=== PATIENT | female | born 1975 | race African-American/Black ===

== ENCOUNTER 2016-08-27 09:24 | Emergency (ER) | payer SELFPAY ==
[2016-08-27 09:45] VITALS: BP 155/105
[2016-08-27 10:23] LABS: ABSOLUTE EOSINOPHILS # (AUTO) 0.2 10^3/uL (0.0-0.6); ABSOLUTE MONOCYTES (AUTO) 0.2 10^3/uL (0.1-1.4); ABSOLUTE NEUT (AUTO) 2.3 10^3/uL (1.7-8.2); BASOPHILS % (AUTO) 0.6 % (0-2); EOSINOPHILS % (AUTO) 4.6 % (0-6); HEMATOCRIT 37.2 % (36.0-47.0); HEMOGLOBIN 12.6 g/dL (12.0-15.5); HGB HCT DIFFERENCE 0.6; LYMPHOCYTES % (AUTO) 41.2 % (13-45); MEAN CORPUSCULAR HEMOGLOBIN 25.3 pg (27.0-33.4); MEAN CORPUSCULAR HGB CONC 33.9 g/dL (32.0-36.0); MEAN CORPUSCULAR VOLUME 75 fl (80-97); RED BLOOD COUNT 4.98 10^6/uL (3.72-5.28); RED CELL DISTRIBUTION WIDTH 15.1 % (11.5-14.0); SEGMENTED NEUTROPHILS % (AUTO) 48.6 % (42-78); WHITE BLOOD COUNT 4.8 10^3/uL (4.0-10.5)
[2016-08-27 10:38] LABS: ALANINE AMINOTRANSFERASE 31 U/L (9-52); ALBUMIN 3.9 g/dL (3.5-5.0); ALKALINE PHOSPHATASE 44 U/L (38-126); ANION GAP 10 (5-19); ASPARTATE AMINO TRANSFERASE 26 U/L (14-36); BILIRUBIN,TOTAL 0.7 mg/dL (0.2-1.3); BLOOD UREA NITROGEN 17 mg/dL (7-20); CALCIUM 9.3 mg/dL (8.4-10.2); CARBON DIOXIDE 28 mmol/L (22-30); CHLORIDE 104 mmol/L (98-107); CREATINE KINASE 98 U/L (30-135); CREATININE RESULT 0.99 mg/dL (0.52-1.25); GLUCOSE 89 mg/dL (75-110); POTASSIUM 4.6 mmol/L (3.6-5.0); SODIUM 142.4 mmol/L (137-145); TOTAL PROTEIN 7.3 g/dL (6.3-8.2)
[2016-08-27 10:50] LABS: CREATINE KINASE MB 0.99 ng/mL (<4.55)
[2016-08-27 10:52] LABS: TROPONIN I < 0.012 ng/mL
--- NOTE | 2016-08-27 11:23 | ER Document Report ---
ED General - General Chief Complaint: Chest Pain > 30 Stated Complaint: CHEST PAIN Time seen by provider: 11:21 Mode of Arrival: Ambulatory Information source: Patient Notes: This is a 41-year-old female with a history of hypertension, fibromyalgia, reactive airway disease who presents to the emergency room with left chest pain which is sharp in nature, nonradiating. Patient states the pain is been worse over the last couple of days. She states that she's had this pain since June and has been seen by her primary care doctor (Dr. Herrera) in the past for it. Patient does have baseline reactive airway disease with some shortness of breath she says that it is not any worse. She does complain of lower leg pain which is not unusual for her given her fibromyalgia. TRAVEL OUTSIDE OF THE [place] IN LAST 30 DAYS: No - HPI Onset: Just prior to arrival Quality of pain: No pain Severity: None Pain Level: Denies Associated symptoms: denies: Fever Exacerbated by: Denies Relieved by: Denies Similar symptoms previously: No Recently seen / treated by doctor: No - Related Data Allergies/Adverse Reactions: No Known Allergies Allergy (Verified 08/27/16 09:41) Past Medical History - General Information source: Patient - Social History Smoking Status: Never Smoker Chew tobacco use (# tins/day): No Frequency of alcohol use: None Drug Abuse: None Lives with: Family Family History: Reviewed & Not Pertinent Patient has suicidal ideation: No Patient has homicidal ideation: No - Past Medical History Cardiac Medical History: Reports: Hx Hypertension Pulmonary Medical History: Reports: Hx Asthma - Wheezes only when she has upper respiratory tract infections., Hx Bronchitis GI Medical History: 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 Musculoskeltal Medical History: Reports Hx Fibromyalgia Infectious Medical History: 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 Past Surgical History: Reports: Hx Hysterectomy, Hx Tubal Ligation - Immunizations Immunizations up to date: Yes Hx Diphtheria, Pertussis, Tetanus Vaccination: Yes - 2008 Review of Systems - Review of Systems Constitutional: denies: Chills, Fever EENT: No symptoms reported Cardiovascular: See HPI Respiratory: See HPI Gastrointestinal: No symptoms reported Genitourinary: No symptoms reported Female Genitourinary: No symptoms reported Musculoskeletal: See HPI Skin: No symptoms reported Hematologic/Lymphatic: No symptoms reported Neurological/Psychological: No symptoms reported Physical Exam - Vital signs Vitals: Temp Pulse Resp BP Pulse Ox 98.1 F 64 16 155/105 H 99 08/27/16 09:44 08/27/16 09:44 08/27/16 09:44 08/27/16 09:44 08/27/16 09:44 Notes: Physical exam: GENERAL: 41-year-old female, alert and oriented 3, no acute distress HEAD: Atraumatic, normocephalic. EYES: Pupils equal round and reactive to light, extraocular movements intact, sclera anicteric, conjunctiva are normal. ENT: TMs normal, nares patent, oropharynx clear without exudates. Moist mucous membranes. NECK: Normal range of motion, supple without lymphadenopathy or JVD. LUNGS: Breath sounds clear to auscultation bilaterally and equal. No wheezes rales or rhonchi. HEART: Regular rate and rhythm without murmurs, rubs or gallops. ABDOMEN: Soft, nontender, normoactive bowel sounds. No guarding, no rebound. No masses appreciated. EXTREMITIES: Normal range of motion, no pitting or edema. No clubbing or cyanosis. NEUROLOGICAL: Cranial nerves II through XII grossly intact. Normal speech, normal gait. PSYCH: Normal mood, normal affect. SKIN: Warm, Dry, normal turgor, no rashes or lesions noted. Course - Vital Signs Vital signs: Temp Pulse Resp BP Pulse Ox 98.1 F 64 16 155/105 H 99 08/27/16 09:44 08/27/16 09:44 08/27/16 09:44 08/27/16 09:44 08/27/16 09:44 - Laboratory Result Diagrams: 08/27/16 10:10 08/27/16 10:10 Laboratory results interpreted by me: 08/27/16 10:10 MCV 75 L MCH 25.3 L RDW 15.1 H - Diagnostic Test Radiology reviewed: Image reviewed, Reports reviewed - CTA of the chest shows no pulmonary emboli. Lower extremity vascular ultrasound shows no DVT. Discharge - Discharge Clinical Impression: chest wall pain Condition: Stable Disposition: HOME, SELF-CARE Instructions: Chest Wall Pain ([facility]) Additional Instructions: Note: The lower extremity Doppler showed no evidence of blood clots. The CT of the chest showed no evidence of any blood clots. There was no evidence of any masses or pneumonia with her lungs on CT. Follow-up with your quality assurance qa lab analyst as planned. Take the Percocet for pain. Also take ibuprofen as needed. Return to the emergency room for worsening pain, shortness of breath or any concerns he getting worse. Prescriptions: Oxycodone HCl/Acetaminophen [Percocet 5-325 mg Tablet] 1 - 2 tab PO ASDIR PRN # 25 tablet PRN Reason:
[2016-08-27] MEDS ORDERED: ACETAMINOPHEN 325 MG TABLET PO ONE (13:19)
--- NOTE | 2016-08-27 16:05 | EKG REPORT ---
SEVERITY:- NORMAL ECG - SINUS RHYTHM : Confirmed by: Ingrid Granda 27-Aug-2016 16:04:54
--- NOTE | 2016-08-27 16:42 | XCELERA REPORT ---
[address] [address] Lower Extremity Venous Evaluation Name: WAYNE MAO Age: 41 yrs Gender: Female : 1975 Patient Status: Emergency Patient Location: ER Study Date: 08/27/2016 11:42 AM Procedure: Color flow and duplex imaging of the veins of the right lower extremity as well as the left Common Femoral vein. Reason For Study: rle pain Ordering Physician: RAYA NIEVES Performed By: Maddison Ceja Right Sided Venous Evaluation Normal vessel filling wall to wall, compression and augmentation as well as Colour flow down to the infrageniculate veins. Left Sided Venous Evaluation The left common femoral vein is fully compressible. Spontaneous and phasic flow is present in the left common femoral vein. Critical Findings Called in to the ER. Interpretation Summary No duplex evidence of DVT or obstruction in the right lower extremity nor in the left Common Femoral vein. : RAYA NIEVES > Oli Colbert
== END 2016-08-27 15:52 | disposition home or self-care (01) ==
LOC: ER 09:24
DX: R07.89 Other chest pain (principal); I10 Essential (primary) hypertension; M79.7 Fibromyalgia; J45.909 Unspecified asthma, uncomplicated
CPT/HCPCS: 36415; 71020; 71275; 80053; 82550; 82553; 84484; 85025; 93005; 93010; 93971; 99285

== ENCOUNTER 2016-09-11 11:44 | Day surgery (SDC) | payer MEDICAID ==
[~2016-09-11 11:44] MED LIST: DIPHENHYDRAMINE HCL 50 MG/ML VIAL ONE; EPINEPHRINE INJ 1 MG/10 ML DISP.SYRIN ONE; FENTANYL CITRATE INJ/PF 100 MCG/2 ML AMPUL ONE; FLUMAZENIL INJ 0.5 MG/5 ML VIAL IV ONE; GLUCAGON,HUMAN RECOMB 1 MG INJ ONE; MIDAZOLAM 2 MG/2 ML INJ ONE; NALOXONE HCL INJ/PF 0.4 MG/1 ML SDV ONE; ONDANSETRON HCL INJ/PF 4 MG/2 ML SDV ONE; PROMETHAZINE HCL INJ 25 MG/1 ML VIAL ONE
--- NOTE | 2016-09-11 12:27 | Operative Report ---
Operative Report DATE OF SURGERY: 09/11/16 Operative Report: The risks benefits and alternatives of the procedure explained to the patient in detail and informed consent is obtained that GIF Olympus video scope was inserted into the patient's mouth and hypopharynx the esophagus is identified intubated and insufflated the scope was then advanced through the esophagus stomach and duodenum retroflexion maneuver is done the esophagus stomach and first and second portions of the duodenum examined PREOPERATIVE DIAGNOSIS: Nausea, dyspepsia POSTOPERATIVE DIAGNOSIS: Gastritis status post biopsy rule out Helicobacter pylori OPERATION: EGD with biopsy SURGEON: KHRIS STATON ANESTHESIA: Moderate Sedation - 2 mg of Versed, 100 g of fentanyl TISSUE REMOVED OR ALTERED: Gastric specimen obtained COMPLICATIONS: None. ESTIMATED BLOOD LOSS: none. INTRAOPERATIVE FINDINGS: Normal esophagus. Gastritis noted. First and second portions of the duodenum normal PROCEDURE: Patient tolerated the procedure well. No Immediate postprocedure complications are noted. Patient is discharged in good condition. Discharge date 09/11/2016. Discharge diet: Regular. Discharge activity: Regular. Patient does have a 2-3 week follow-up to discuss findings. She is instructed to call the office or proceed to the emergency room if any further problems or questions. We'll await on biopsies.
[2016-09-11 13:38] VITALS: BP 116/75
[2016-09-16 07:12] LABS: HEPATITIS BE AB Positive (Negative)
== END 2016-09-11 13:40 | disposition home or self-care (01) ==
LOC: END 11:44
PROVIDERS: ATTEND Internal Medicine Gastroenterology
PROC: 0DB68ZX Excision of Stomach, Via Natural or Artificial Opening Endoscopic, Diagnostic (ICD-10-PCS; principal; 2016-09-11 12:00)
DX: K29.50 Unspecified chronic gastritis without bleeding (principal); J45.909 Unspecified asthma, uncomplicated; I10 Essential (primary) hypertension; M79.7 Fibromyalgia; B19.10 Unspecified viral hepatitis B without hepatic coma; Z79.899 Other long term (current) drug therapy; Z79.51 Long term (current) use of inhaled steroids
CPT/HCPCS: 43239; 36415; 86705; 87350; 86707; 86704; 86317; 87340; 86706; 88342 ×2; 88305 ×2; J2250; J3010; J0171; J1200; J1610; J2310; J2405; J2550; J3490

== ENCOUNTER 2017-04-02 00:58 | Emergency (ER) | payer MEDICAID ==
[2017-04-02] MEDS ORDERED: IPRATROPIUM/ALBUTEROL 0.5-2.5 MG/3 ML AMPUL NEB ONE (01:19)
[2017-04-02] MEDS ORDERED: PREDNISONE 20 MG TABLET PO ONE (01:19)
[2017-04-02] MEDS: ALBUTEROL SULFATE 0.083% NEB 2.5 MG/3 ML AMPUL NEB SCH ×2 (01:23→03:18)
[2017-04-02] MEDS ORDERED: BENZONATATE 100 MG CAPSULE PO ONE (02:32)
--- NOTE | 2017-04-02 02:47 | ER Document Report ---
HPI - HPI Pain Level: 4 Notes: Patient with a history of asthma, fibromyalgia, hypertension presents the ED complaining of a dry semi-productive cough, occasional chills, sore throat, hoarseness, and wheezing 1 day. Patient states that she has been using ibuprofen [id number] with minimal relief. Patient states that she has been using her Symbicort twice a day as directed along with her albuterol inhaler and nebulizer treatments. Patient states that she is still able to eat and drink without any difficulties. Patient states she is still able to ambulate without any difficulties or shortness of breath. Denies any recent travel, illness, exposure to sick contacts. Denies any headache, fever, neck pain/stiffness, nasal donte/discharge, chest pain, palpitations, syncope, shortness of breath, dyspnea, abdominal pain, nausea/vomiting/diarrhea, urinary retention, dysuria, hematuria, or rash. - ROS Notes: REVIEW OF SYSTEMS: CONSTITUTIONAL : Denies fever or sweats. Denies recent illness. EENT: see hpi. No eye complaints. CARDIOVASCULAR: Denies chest pain. Denies palpitations or racing or irregular heart beat. Denies ankle edema. RESPIRATORY: see hpi GASTROINTESTINAL: Denies abdominal pain or distention. Denies nausea, vomiting , or diarrhea. Denies blood in vomitus, stools, or per rectum. Denies black, tarry stools. Denies constipation. GENITOURINARY: Denies difficulty urinating, painful urination, burning, frequency, blood in urine, or discharge. MUSCULOSKELETAL: Denies back or neck pain or stiffness. Denies joint pain or swelling. SKIN: Denies rash, lesions or sores. NEUROLOGICAL: Denies confusion or altered mental status. Denies passing out or loss of consciousness. Denies dizziness or lightheadedness. Denies headache. Denies weakness or paralysis or loss of use of either side. Denies problems with gait or speech. Denies sensory loss, numbness, or tingling. ALL OTHER SYSTEMS REVIEWED AND NEGATIVE. Dictation was performed using [employer] voice recognition software - REPRODUCTIVE Reproductive: DENIES: : - DERM Skin Color: Normal, [place] Past Medical History - Social History Smoking Status: Unknown if Ever Smoked Drug Abuse: None Family History: Reviewed & Not Pertinent - Past Medical History Cardiac Medical History: Reports: Hx Hypertension Denies: Hx Coronary Artery Disease, Hx Heart Attack Pulmonary Medical History: Reports: Hx Asthma - Wheezes only when she has upper respiratory tract infections., Hx Bronchitis, Hx Pneumonia Denies: Hx COPD Neurological Medical History: Denies: Hx Cerebrovascular Accident, Hx Seizures Renal/ Medical History: Denies: Hx Peritoneal Dialysis GI Medical History: 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 Musculoskeltal Medical History: Denies Hx Arthritis, Reports Hx Fibromyalgia Infectious Medical History: 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 Surgical Hx: Negative Past Surgical History: Reports: Hx Hysterectomy, Hx Tubal Ligation - Immunizations Immunizations up to date: Yes Hx Diphtheria, Pertussis, Tetanus Vaccination: Yes - 2008 Vertical Provider Document - CONSTITUTIONAL Agree With Documented VS: Yes Notes: PHYSICAL EXAMINATION: GENERAL: Well-appearing, well-nourished and in no acute distress. HEAD: Atraumatic, normocephalic. EYES: Pupils equal round and reactive to light, extraocular movements intact, sclera anicteric, conjunctiva are normal. ENT: EAC clear b/l. TM's intact b/l without erythema, fluid, or perforation. Nares patent and without discharge. oropharynx clear without exudates. No tonsilar hypertrophy or erythema. Moist mucous membranes. No sinus tenderness. NECK: Normal range of motion, supple without lymphadenopathy. No rigidity/ meningismus. LUNGS: mild wheezing b/l. No crackles/rhonchi HEART: Regular rate and rhythm without murmurs, rubs, gallops. ABDOMEN: Soft, nontender, nondistended abdomen. No guarding, no rebound. No masses appreciated. Normal bowel sounds present. No CVA tenderness bilaterally. Musculoskeletal: Ewelina neg b/l. Extremities: No cyanosis, clubbing, or edema b/l. Peripheral pulses 2+. Capillary refill less than 2 seconds. NEUROLOGICAL: Normal speech, normal gait. Normal sensory, motor exams PSYCH: Normal mood, normal affect. SKIN: Warm, Dry, normal turgor, no rashes or lesions noted. - INFECTION CONTROL TRAVEL OUTSIDE OF THE [place] IN LAST 30 DAYS: No - RESPIRATORY O2 Sat by Pulse Oximetry: 97 Course - Re-evaluation Re-evalutation: 04/02/17 04:05 Patient is an afebrile, well-hydrated, 42-year-old female who presents the ED with acute URI and asthma exacerbation. Vitals are stable. PE otherwise unremarkable. Chest x-ray was unremarkable for any acute pathology aside from pulm congestion--most likely related to viral illness. Lung sounds were good overall. 2 nebulizer treatments were given in the ED today along with a Tessalon Perle. Low suspicion for any ACS, pericarditis, pneumothorax, dissection, PE, meningitis, sepsis, peritonsillar/pharyngeal abscess, respiratory compromise, ludwigs, or other emergent systemic condition at this time. Patient is aware that condition can change from initial presentation and she needs to monitor symptoms closely and seek medical attention if any acute changes. Conservative measures for symptoms as reviewed in discharge. Advised recheck with her PCM in 2-3 days. Return to the ED with any worsening/ concerning symptoms otherwise as reviewed in discharge. Patient is in agreement. - Vital Signs Vital signs: Temp Pulse Resp BP Pulse Ox 98.5 F 75 20 160/89 H 97 04/02/17 02:15 04/02/17 02:15 04/02/17 02:15 04/02/17 02:15 04/02/17 02:15 Discharge - Discharge Clinical Impression: Asthma exacerbation URI (upper respiratory infection) Qualifiers: URI type: unspecified URI Qualified Code(s): J06.9 - Acute upper respiratory infection, unspecified Condition: Stable Disposition: HOME, SELF-CARE Instructions: Upper Respiratory Illness ([facility]), Viral Syndrome ([facility]) Additional Instructions: Maintain adequate fluid intake Take meds as directed tylenol/ibuprofen as needed over the counter cold medication as needed for symptoms Humidified air may help F/u: with your PCM in 2-3 days for a recheck Return to the ED with any worsening symptoms and/or development of fever, headache, neck pain/stiffness, trouble swallowing, drooling, chest pain, palpitations, syncope, shortness of breath, trouble breathing, abdominal pain, n /v/d, or other worsening symptoms that are concerning to you. Prescriptions: Benzonatate [Tessalon Perle 100 mg Capsule] 100 mg PO Q8HP PRN #10 cap PRN Reason: Forms: Elevated Blood Pressure Referrals: TRINI PINA MD [ACTIVE STAFF] - Follow up in 3-5 days
--- NOTE | 2017-04-02 03:56 | RADIOLOGY REPORT (SQ) ---
EXAM DESCRIPTION: CHEST PA/LAT COMPLETED DATE/TIME: 04/02/2017 3:29 am REASON FOR STUDY: cough COMPARISON: 08/27/2016. EXAM PARAMETERS: NUMBER OF VIEWS: two views TECHNIQUE: Digital Frontal and Lateral radiographic views of the chest acquired. RADIATION DOSE: NA LIMITATIONS: none FINDINGS: LUNGS AND PLEURA: No opacities, masses or pneumothorax. No pleural effusion. Moderate nandini g volume. Pulmonary vascular congestion. MEDIASTINUM AND HILAR STRUCTURES: No masses or contour abnormalities. HEART AND VASCULAR STRUCTURES: Heart normal size. No evidence for failure. BONES: No acute findings. Developmental splaying of the right 4th and 5th posterior ribs, stable. HARDWARE: None in the chest. OTHER: No other significant finding. IMPRESSION: Pulmonary vascular congestion. TECHNICAL DOCUMENTATION: JOB ID: [id number] [employer]- All Rights Reserved
[2017-04-02 05:11] VITALS: BP 145/76
== END 2017-04-02 05:11 | disposition home or self-care (01) ==
LOC: ER 00:58
DX: J06.9 Acute upper respiratory infection, unspecified (principal); J45.901 Unspecified asthma with (acute) exacerbation; R05 Cough; I10 Essential (primary) hypertension; J02.9 Acute pharyngitis, unspecified; R68.83 Chills (without fever); R49.0 Dysphonia; Z87.01 Personal history of pneumonia (recurrent)
CPT/HCPCS: 94640 ×2; 99285; 71020; J3490; J7512; J7620

== ENCOUNTER → 2018-04-01 | Outpatient (CLI) | payer MEDICAID ==
--- NOTE | 2018-04-01 11:05 | RADIOLOGY REPORT (SQ) ---
EXAM DESCRIPTION: KNEE LEFT 4 VIEWS COMPLETED DATE/TIME: 04/01/2018 10:28 am REASON FOR STUDY: PAIN IN RIGHT KNEE, PAIN IN LEFT KNEE M25.561 PAIN IN RIGHT KNEE M25.562 PAIN IN LEFT KNEE COMPARISON: None. NUMBER OF VIEWS: Four views. TECHNIQUE: AP, lateral, and both oblique radiographic images acquired of the left knee. LIMITATIONS: None. FINDINGS: MINERALIZATION: Normal. BONES: No acute fracture or dislocation. No worrisome bone lesions. JOINT: No effusion. SOFT TISSUES: No soft tissue swelling. No radio-opaque foreign body. OTHER: No other significant finding. IMPRESSION: NEGATIVE STUDY OF THE LEFT KNEE. NO RADIOGRAPHIC EVIDENCE OF ACUTE INJURY. TECHNICAL DOCUMENTATION: JOB ID: [id number] [employer]- All Rights Reserved Reading location - IP/workstation name: [email or web address]
--- NOTE | 2018-04-01 11:06 | RADIOLOGY REPORT (SQ) ---
EXAM DESCRIPTION: KNEE RIGHT 4 VIEWS COMPLETED DATE/TIME: 04/01/2018 10:28 am REASON FOR STUDY: . M25.561 PAIN IN RIGHT KNEE M25.562 PAIN IN LEFT KNEE COMPARISON: None. NUMBER OF VIEWS: Four views. TECHNIQUE: AP, lateral, and both oblique radiographic images acquired of the right knee. LIMITATIONS: None. FINDINGS: MINERALIZATION: Normal. BONES: No acute fracture or dislocation. No worrisome bone lesions. JOINT: No effusion. SOFT TISSUES: No soft tissue swelling. No radio-opaque foreign body. OTHER: No other significant finding. IMPRESSION: NEGATIVE STUDY OF THE RIGHT KNEE. NO RADIOGRAPHIC EVIDENCE OF ACUTE INJURY. TECHNICAL DOCUMENTATION: JOB ID: [id number] [employer]- All Rights Reserved Reading location - IP/workstation name: [email or web address]
== END ==
LOC: OD 10:00
PROVIDERS: ATTEND Family Medicine
DX: M25.561 Pain in right knee (principal); M25.562 Pain in left knee

== ENCOUNTER → 2018-07-08 | Outpatient (CLI) | payer MEDICAID ==
--- NOTE | 2018-07-09 13:25 | WOMENS IMAGING REPORT ---
EXAM DESCRIPTION: BILAT SCREENING MAMMO W/CAD COMPLETED DATE/TIME: 07/08/2018 4:09 pm REASON FOR STUDY: BILATERAL SCREENING MAMMO /Z12.31 Z12.31 ENCNTR SCREEN MAMMOGRAM FOR MALIGNANT NE OPLASM OF DANYEL COMPARISON: 2015 TECHNIQUE: Standard craniocaudal and mediolateral oblique views of each breast recorded using Mempilea l acquisition. LIMITATIONS: None. FINDINGS: No masses, calcifications or architectural distortion. No areas of suspicion. Read with the assistance of CAD. .[facility] - R2 Cenova Version 1.3 .[facility] - R2 Cenova Version 1.3 .[facility] - R2 Cenova Version 2.4 .[facility] - R2 Cenova Version 2.4 .[facility] - R2 Voltage Regulator Assembler Version 9.2 IMPRESSION: NORMAL MAMMOGRAM. BIRADS 1. BREAST DENSITY: b. There are scattered areas of fibroglandular density. BIRAD: 1 NEGATIVE RECOMMENDATION: ROUTINE SCREENING Please continue yearly bilateral screening mammography/tomosynthesis in June 2019 COMMENT: The patient has been notified of the results by letter per SA requirements. Additional no tification policies are in place for contacting patient with suspicious or incomplete findings. Quality ID #[id number]: The [employer] recommends an annual screening mammogram for women aged 40 years or over. This facility utilizes a reminder system to ensure that all patients receive reminder letters, and/or direct phone calls for appointments. This includes reminders for routine scr eening mammograms, diagnostic mammograms, or other Breast Imaging Interventions when appropriate. Th is patient will be placed in the appropriate reminder system. The [employer] (ACR) has developed recommendations for screening MRI of the breast s in certain patient populations, to be used in conjunction with mammography. Breast MRI surveillanc e may be appropriate for women with more than 20% lifetime risk of developing breast cancer as deter mined by genetic testing, significant family history of the disease, or history of mantle radiation f or Hodgkins Disease. ACR Practice Guidelines 2008. TECHNICAL DOCUMENTATION: FINDING NUMBER: (1) ASSESSMENT: (1) JOB ID: [id number] [employer]- All Rights Reserved Reading location - IP/workstation name: [email or web address]
== END ==
LOC: WI 15:50
PROVIDERS: ATTEND Family Medicine
DX: Z12.31 Encounter for screening mammogram for malignant neoplasm of breast (principal)
CPT/HCPCS: 77067

== ENCOUNTER 2018-07-11 10:35 | Emergency (ER) | payer MEDICAID ==
--- NOTE | 2018-07-11 10:54 | EKG REPORT ---
SEVERITY:- ABNORMAL ECG - SINUS RHYTHM PROBABLE LEFT ATRIAL ABNORMALITY LEFT VENTRICULAR HYPERTROPHY : Confirmed by: Ingrid Granda 11-Jul-2018 10:53:59
[2018-07-11] MEDS ORDERED: CLONIDINE HCL 0.2 MG TABLET PO ONE (10:55)
[2018-07-11] MEDS ORDERED: ASPIRIN 325 MG TABLET PO ONE (10:55)
--- NOTE | 2018-07-11 10:57 | ER Document Report ---
ED Medical Screen (RME) - General Chief Complaint: Chest Pain Stated Complaint: BLOOD PRESSURE ISSUE/SORE THROAT Time Seen by Provider: 07/11/18 10:54 TRAVEL OUTSIDE OF THE [place] IN LAST 30 DAYS: No - HPI Patient complains to provider of: CP, elevaated BP, ST Onset: Yesterday - pt states here BP was checked andfound to be elevated today despite taking her prescribed meds. Also c/o sore throat and intermittent CP - Related Data Allergies/Adverse Reactions: No Known Allergies Allergy (Verified 04/02/17 01:16) Past Medical History - Past Medical History Cardiac Medical History: Reports: Hx Hypertension Denies: Hx Coronary Artery Disease, Hx Heart Attack Pulmonary Medical History: Reports: Hx Asthma - Wheezes only when she has upper respiratory tract infections., Hx Bronchitis, Hx Pneumonia Denies: Hx COPD Neurological Medical History: Denies: Hx Cerebrovascular Accident, Hx Seizures Renal/ Medical History: Denies: Hx Peritoneal Dialysis GI Medical History: 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 Musculoskeltal Medical History: Denies Hx Arthritis, Reports Hx Fibromyalgia Infectious Medical History: 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 Past Surgical History: Reports: Hx Hysterectomy, Hx Tubal Ligation - Immunizations Immunizations up to date: Yes Hx Diphtheria, Pertussis, Tetanus Vaccination: Yes - 2008 Physical Exam - Vital signs Vitals: Temp Pulse Resp BP Pulse Ox 98.2 F 62 16 177/119 H 97 07/11/18 10:50 07/11/18 10:50 07/11/18 10:50 07/11/18 10:50 07/11/18 10:50 Course - Vital Signs Vital signs: Temp Pulse Resp BP Pulse Ox 98.2 F 62 16 177/119 H 97 07/11/18 10:50 07/11/18 10:50 07/11/18 10:50 07/11/18 10:50 07/11/18 10:50 Doctor's Discharge - Discharge Referrals: TRINI PINA MD [Primary Care Provider] - Follow up as needed
[2018-07-11 11:35] LABS: ABSOLUTE EOSINOPHILS # (AUTO) 0.3 10^3/uL (0.0-0.6); ABSOLUTE LYMPHOCYTES (AUTO) 2.1 10^3/uL (0.5-4.7); ABSOLUTE MONOCYTES (AUTO) 0.4 10^3/uL (0.1-1.4); ABSOLUTE NEUT (AUTO) 2.6 10^3/uL (1.7-8.2); BASOPHILS % (AUTO) 0.8 % (0-2); EOSINOPHILS % (AUTO) 6.3 % (0-6); HEMATOCRIT 39.1 % (36.0-47.0); HEMOGLOBIN 13.2 g/dL (12.0-15.5); LYMPHOCYTES % (AUTO) 38.8 % (13-45); MEAN CORPUSCULAR HGB CONC 33.7 g/dL (32.0-36.0); MEAN CORPUSCULAR VOLUME 77 fl (80-97); MONOCYTES % (AUTO) 6.5 % (3-13); PLATELET COUNT 199 10^3/uL (150-450); RED BLOOD COUNT 5.08 10^6/uL (3.72-5.28); RED CELL DISTRIBUTION WIDTH 14.8 % (11.5-14.0); SEGMENTED NEUTROPHILS % (AUTO) 47.6 % (42-78); TOTAL CELLS COUNTED % (AUTO) 100 %; WHITE BLOOD COUNT 5.5 10^3/uL (4.0-10.5)
[2018-07-11 11:55] LABS: ALANINE AMINOTRANSFERASE 12 U/L (9-52); ALKALINE PHOSPHATASE 53 U/L (38-126); ANION GAP 9 (5-19); ASPARTATE AMINO TRANSFERASE 24 U/L (14-36); BILIRUBIN,DIRECT 0.2 mg/dL (0.0-0.4); BILIRUBIN,TOTAL 0.5 mg/dL (0.2-1.3); BLOOD UREA NITROGEN 14 mg/dL (7-20); CALCIUM 9.5 mg/dL (8.4-10.2); CARBON DIOXIDE 31 mmol/L (22-30); CHLORIDE 104 mmol/L (98-107); CREATINE KINASE 121 U/L (30-135); GLUCOSE 73 mg/dL (75-110); POTASSIUM 4.2 mmol/L (3.6-5.0); SODIUM 143.6 mmol/L (137-145); TOTAL PROTEIN 7.4 g/dL (6.3-8.2)
[2018-07-11 12:06] LABS: CREATINE KINASE MB 0.88 ng/mL (<4.55)
[2018-07-11 12:09] LABS: TROPONIN I < 0.012 ng/mL
--- NOTE | 2018-07-11 12:27 | RADIOLOGY REPORT (SQ) ---
EXAM DESCRIPTION: CHEST 2 VIEWS COMPLETED DATE/TIME: 07/11/2018 11:44 am REASON FOR STUDY: CP COMPARISON: 04/02/2017. EXAM PARAMETERS: NUMBER OF VIEWS: two views TECHNIQUE: Digital Frontal and Lateral radiographic views of the chest acquired. RADIATION DOSE: NA LIMITATIONS: none FINDINGS: LUNGS AND PLEURA: Chronic scarring at right lung base. 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 MEDIASTINUM AND HILAR STRUCTURES: No masses or contour abnormalities. HEART AND VASCULAR STRUCTURES: The heart is unchanged. The pulmonary vasculature is normal. BONES: Previously noted developmental variant of the right posterior 4th and 5th ribs seen. Dorsal s pondylosis. HARDWARE: None in the chest. OTHER: No other significant finding. IMPRESSION: No acute disease. TECHNICAL DOCUMENTATION: JOB ID: [id number] [employer]- All Rights Reserved Reading location - IP/workstation name: [email or web address]
--- NOTE | 2018-07-11 13:19 | ER Document Report ---
ED General - General Chief Complaint: Chest Pain Stated Complaint: BLOOD PRESSURE ISSUE/SORE THROAT Time Seen by Provider: 07/11/18 10:54 TRAVEL OUTSIDE OF THE [place] IN LAST 30 DAYS: No - HPI Patient complains to provider of: Elevated blood pressure chest pain sore throat Notes: Patient was seen in urgent care earlier today for sore throat. Patient states that the urgent care center over to the ER for further evaluation of a sore throat. States that while she was at urgent care noticed that her blood pressure was up. Patient states recent changes to her blood pressure medications by her PCP patient is unaware of these changes patient does endorse that she does take amlodipine and clonidine. Patient states she may have missed a few doses of her clonidine on Thursday. Patient otherwise states intermittent chest pain over the last 3-4 days. Center of the chest nonradiating. Patient denies any sick contacts that she is aware of. Denies any fevers chills nausea vomiting or diarrhea. Patient upon my evaluation is resting comfortably no signs of any acute distress. Patient was seen in triage with elevated blood pressure a dose of clonidine was given in triage. Blood pressure has improved since that time and is currently now 150 systolic A brief review of the patient's medical records available in [employer] was performed - Related Data Allergies/Adverse Reactions: No Known Allergies Allergy (Verified 04/02/17 01:16) Past Medical History - Social History Smoking Status: Unknown if Ever Smoked Family History: Reviewed & Not Pertinent Patient has suicidal ideation: No Patient has homicidal ideation: No - Past Medical History Cardiac Medical History: Reports: Hx Hypertension Denies: Hx Coronary Artery Disease, Hx Heart Attack Pulmonary Medical History: Reports: Hx Asthma - Wheezes only when she has upper respiratory tract infections., Hx Bronchitis, Hx Pneumonia Denies: Hx COPD Neurological Medical History: Denies: Hx Cerebrovascular Accident, Hx Seizures Renal/ Medical History: Denies: Hx Peritoneal Dialysis GI Medical History: 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 Respiratory: No symptoms reported Gastrointestinal: No symptoms reported Genitourinary: No symptoms reported Female Genitourinary: No symptoms reported Musculoskeletal: No symptoms reported Skin: No symptoms reported Hematologic/Lymphatic: No symptoms reported Neurological/Psychological: No symptoms reported -: Yes All other systems reviewed and negative Physical Exam - Vital signs Vitals: Temp Pulse Resp BP Pulse Ox 98.2 F 62 16 177/119 H 97 07/11/18 10:50 07/11/18 10:50 07/11/18 10:50 07/11/18 10:50 07/11/18 10:50 Interpretation: Normal - General General appearance: Appears well, Alert - HEENT Head: Normocephalic, Atraumatic Eyes: Normal Pupils: PERRL - Respiratory Respiratory status: No respiratory distress Chest status: Nontender Breath sounds: Normal Chest palpation: Normal - Cardiovascular Rhythm: Regular Heart sounds: Normal auscultation Murmur: No - Abdominal Inspection: Normal Distension: No distension Bowel sounds: Normal Tenderness: Nontender Organomegaly: No organomegaly - Back Back: Normal, Nontender - Extremities General upper extremity: Normal inspection, Nontender, Normal color, Normal ROM , Normal temperature General lower extremity: Normal inspection, Nontender, Normal color, Normal ROM , Normal temperature, Normal weight bearing. No: Ewelina's sign - Neurological Neuro grossly intact: Yes Cognition: Normal Orientation: AAOx4 Sara Coma Scale Eye Opening: Spontaneous Sara Coma Scale Verbal: Oriented Sara Coma Scale Motor: Obeys Commands Sara Coma Scale Total: 15 Speech: Normal Motor strength normal: LUE, RUE, LLE, RLE Sensory: Normal - Psychological Associated symptoms: Normal affect, Normal mood - Skin Skin Temperature: Warm Skin Moisture: Dry Skin Color: Normal Course - Re-evaluation Re-evalutation: 07/11/18 14:49 Patient coming in for evaluation of elevated blood pressure. Laboratory studies not show any critical pathology. States intermittent chest pain with negative EKG negative troponins. Chest x-ray is also negative. Strep swab was negative. Patient's blood pressure improved with a dose of clonidine. Explained to the patient the importance of being compliant with her medication especially the clonidine. Patient states understanding. Otherwise patient is chest pain-free and has remained chest pain-free during her visit here in [place] no other complaints states understanding of the need to follow-up with her PCP and be compliant with her medications. Patient will be discharged home this time for follow-up with her primary care physician. The patient has atypical chest pain as the patient's chest pain is not suggestive of pulmonary embolus, cardiac ischemia, aortic dissection, or other serious etiology. Given the extremely low risk of these diagnoses further testing and evaluation for these possibilities does not appear to be indicated at this time. The patient has been instructed to return if the symptoms worsen or change in any way. - Vital Signs Vital signs: Temp Pulse Resp BP Pulse Ox 97.9 F 62 16 141/99 H 100 07/11/18 13:49 07/11/18 10:50 07/11/18 13:32 07/11/18 13:32 07/11/18 13:32 - Laboratory Result Diagrams: 07/11/18 11:09 07/11/18 11:09 Laboratory results interpreted by me: 07/11/18 07/11/18 11:09 11:09 MCV 77 L MCH 26.0 L RDW 14.8 H Eosinophils % 6.3 H Carbon Dioxide 31 H Est GFR (Non-Af Amer) 55 L Glucose 73 L Discharge - Discharge Clinical Impression: Chest wall pain, Sore throat Hypertension Qualifiers: Hypertension type: essential hypertension Qualified Code(s): I10 - Essential ( primary) hypertension Condition: Good Disposition: HOME, SELF-CARE Instructions: Anti-Inflammatory Medication ([facility]), Chest Wall Pain ([facility]), Chest Pain of Unclear Cause ([facility]), Sore Throat ([facility]) Additional Instructions: Chest x-ray EKG laboratory evaluation does not show any signs of significant pathology. Your rapid strep returned negative. Do believe sore throat more likely due to sleeping with a fan on viral illness or allergens. I would highly recommend using honey [id number] cough drops for your sore throat Tylenol Motrin for sore throat. Also recommend taking [id number]-[id number] Zyrtec for any sinus symptoms. Please follow-up with your primary care physician for further adjustment of your blood pressure medication. Please continue to monitor your blood pressure. Return to ER symptoms worsen. Prescriptions: Ibuprofen [Motrin 600 mg Tablet] 600 mg PO Q8HP PRN #21 tablet PRN Reason: Referrals: TRINI PINA MD [Primary Care Provider] - Follow up as needed
[2018-07-11 13:49] VITALS: BP 141/99
== END 2018-07-11 13:52 | disposition home or self-care (01) ==
LOC: ER 10:35
DX: I10 Essential (primary) hypertension (principal); Z79.899 Other long term (current) drug therapy; R07.89 Other chest pain; J02.9 Acute pharyngitis, unspecified; J45.909 Unspecified asthma, uncomplicated
CPT/HCPCS: 93005; 99285; 36415; 87070; 82553; 87880; 82550; 85025; 80053; 84484; 71046; 93010; J3490

== ENCOUNTER → 2018-08-18 | Outpatient (CLI) | payer MEDICAID ==
[2018-08-18 18:58] LABS: A TYPE INFLUENZA AG NEGATIVE (NEGATIVE)
[2018-08-18 18:59] LABS: B INFLUENZA AG NEGATIVE (NEGATIVE)
== END ==
LOC: LAB 18:18
PROVIDERS: ATTEND Nurse Practitioner Family
DX: R68.89 Other general symptoms and signs (principal)
CPT/HCPCS: 87804

== ENCOUNTER 2018-08-19 22:46 | Emergency (ER) | payer MEDICAID ==
[2018-08-20] MEDS ORDERED: KETOROLAC TROMETHAMINE 60 MG/2 ML SDV IM ONE (00:59)
[2018-08-20] MEDS ORDERED: DICYCLOMINE HCL 20 MG TABLET PO ONE (01:09)
[2018-08-20] MEDS ORDERED: PROMETHAZINE HCL 25 MG TABLET PO ONE (01:09)
--- NOTE | 2018-08-20 01:14 | ER Document Report ---
ED General - General Chief Complaint: Flu Symptoms Stated Complaint: VOMITTING,DIARRHEA Time Seen by Provider: 08/20/18 00:58 TRAVEL OUTSIDE OF THE [place] IN LAST 30 DAYS: No - HPI Notes: Patient is a 43-year-old female that presents to the emergency department for chief complaint of nausea vomiting and diarrhea. Patient reports her nausea vomiting and diarrhea started 4 days ago. Her vomiting has improved but the diarrhea has continued. She is taking Zofran at home for the vomiting with some improvement. She is taking Imodium at home for the diarrhea with some improvement. She reports diffuse abdominal cramping with bowel movements. The cramping resolves after having a bowel movement. She reports fevers at home which has improved with a dose of Tylenol at 2000 today. Patient states her daughter has the same symptoms and it began after eating chicken on [place]. Past Medical History: Hypertension, asthma Past Surgical History: Esophageal surgery Social History: Denies drugs alcohol and tobacco Family History: Reviewed and noncontributory for presenting illness Allergies: Reviewed, see documented allergy list. REVIEW OF SYSTEMS: CONSTITUTIONAL : fever No chills No diaphoresis No recent illness EENT: No vision changes No congestion No sore throat CARDIOVASCULAR: No chest pain No palpitations RESPIRATORY: No shortness of breath No cough No difficulty breathing GASTROINTESTINAL: abdominal pain nausea vomiting diarrhea GENITOURINARY: No dysuria No hematuria No difficulty urinating MUSCULOSKELETAL: No back pain No leg pain No arm pain SKIN: No rashes No lesions LYMPHATIC: No swollen, enlarged glands. NEUROLOGICAL: No lightheadedness No headache No weakness No paresthesias PSYCHIATRIC: No anxiety No depression PHYSICAL EXAMINATION: Vital signs reviewed, nursing noted reviewed. GENERAL: Well-appearing, well-nourished and in no acute distress. HEAD: Atraumatic, normocephalic. EYES: Eyes appear normal, extraocular movements intact, sclera anicteric, conjunctiva are normal. ENT: nares patent, oropharynx clear without exudates. Moist mucous membranes. NECK: Normal range of motion, supple without lymphadenopathy LUNGS: Breath sounds clear to auscultation bilaterally and equal. No wheezes rales or rhonchi. HEART: Regular rate and rhythm without murmurs ABDOMEN: Soft, nontender, normoactive bowel sounds. No rebound, guarding, or rigidity. No masses appreciated. EXTREMITIES: Nontender, good range of motion, no pitting or edema. NEUROLOGICAL: No focal neurological deficits. Moves all extremities spontaneously Motor and sensory grossly intact on exam. PSYCH: Normal mood, normal affect. SKIN: Warm, Dry, normal turgor, no rashes or lesions noted on exposed skin - Related Data Allergies/Adverse Reactions: No Known Allergies Allergy (Verified 04/02/17 01:16) Past Medical History - Social History Smoking Status: Never Smoker Family History: Reviewed & Not Pertinent - Past Medical History Cardiac Medical History: Reports: Hx Hypertension Denies: Hx Coronary Artery Disease, Hx Heart Attack Pulmonary Medical History: Reports: Hx Asthma - Wheezes only when she has upper respiratory tract infections., Hx Bronchitis, Hx Pneumonia Denies: Hx COPD Neurological Medical History: Denies: Hx Cerebrovascular Accident, Hx Seizures Renal/ Medical History: Denies: Hx Peritoneal Dialysis GI Medical History: 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 Nursing notes reviewed. Patient tested negative for influenza yesterday. Patient is afebrile and nontoxic in appearance. Her abdominal exam is soft with no focal tenderness. She has no peritoneal signs. Patient will be given Toradol, Bentyl, and Phenergan for symptom medic management. Stool cultures were ordered which she can follow-up with with her primary care doctor as an outpatient. Patient's daughter has identical symptoms suggesting an infectious etiology. I counseled her on increasing oral hydration and following closely with her primary care doctor for reevaluation. She is stable at discharge. - Vital Signs Vital signs: Temp Pulse Resp BP Pulse Ox 99.3 F 79 18 146/87 H 99 08/19/18 23:02 08/19/18 23:02 08/19/18 23:02 08/19/18 23:02 08/19/18 23:02 Discharge - Discharge Clinical Impression: Nausea vomiting and diarrhea Condition: Stable Disposition: HOME, SELF-CARE Instructions: Vomiting ([facility]), Diarrhea, Nonspecific ([facility]) Additional Instructions: Please return to the emergency department if you have any worsening, or concern of your symptoms. Please return to the emergency department if you develop chest pain, difficulty breathing, severe abdominal pain, or ongoing vomiting. Please follow-up with your primary care physician in 2-3 days and any other recommended physicians. If prescribed, take all medications as directed. If you have any questions or concerns do not hesitate to return the emergency department for evaluation. Drink lots of water at home to prevent getting dehydrated Prescriptions: Dicyclomine HCl [Bentyl 20 mg Tablet] 20 mg PO QID PRN #40 tablet PRN Reason: Abdominal Cramping Promethazine HCl [Phenergan 25 mg Tablet] 1 tab PO Q6H PRN #15 tablet PRN Reason: Referrals: SHAHEEN SCOTT FNP-C [Primary Care Provider] - Follow up in 3-5 days
[2018-08-20 01:51] VITALS: BP 142/84
== END 2018-08-20 01:51 | disposition home or self-care (01) ==
LOC: ER 22:46
DX: R11.2 Nausea with vomiting, unspecified (principal); R19.7 Diarrhea, unspecified; R10.84 Generalized abdominal pain; R50.9 Fever, unspecified; I10 Essential (primary) hypertension; J45.909 Unspecified asthma, uncomplicated; Z98.51 Tubal ligation status; Z90.710 Acquired absence of both cervix and uterus
CPT/HCPCS: 99283; 96372; J3490 ×2; J1885

== ENCOUNTER 2018-08-23 16:01 | Emergency (ER) | payer MEDICAID ==
[2018-08-23] MEDS ORDERED: KETOROLAC TROMETHAMINE INJ/PF 30 MG/1 ML SDV IV ONE (16:26)
[2018-08-23] MEDS ORDERED: ONDANSETRON HCL INJ/PF 4 MG/2 ML SDV IV ONE (16:26)
[2018-08-23] MEDS ORDERED: NORMAL SALINE 1000 ML 1,000 ML IV ONE (16:26)
--- NOTE | 2018-08-23 16:29 | ER Document Report ---
ED General - General Chief Complaint: Nausea/Vomiting/Diarrhea Stated Complaint: NAUSEA/VOMITING Time Seen by Provider: 08/23/18 16:18 TRAVEL OUTSIDE OF THE [place] IN LAST 30 DAYS: No - HPI Notes: Patient is a 43-year-old female that presents to the emergency department for chief complaint of nausea vomiting diarrhea and abdominal cramping. Patient was here recently for the same complaints. She states she was starting to feel better and then yesterday her cramping, diarrhea and vomiting returned. She states the cramping is diffuse in her abdomen and worse with bowel movements. She reports having diarrhea every few hours. She denies any bloody emesis or stool. She denies any fevers or chills. Patient's daughter had the same symptoms for a week and she states that her daughter just started feeling better today. Patient has taken Phenergan and Bentyl at home with some relief of symptoms. Past Medical History: Hypertension, asthma Past Surgical History: Esophageal surgery Social History: Denies drugs alcohol and tobacco Family History: Reviewed and noncontributory for presenting illness Allergies: Reviewed, see documented allergy list. REVIEW OF SYSTEMS: CONSTITUTIONAL : No fever No chills No diaphoresis No recent illness EENT: No vision changes No congestion No sore throat CARDIOVASCULAR: No chest pain No palpitations RESPIRATORY: No shortness of breath No cough No difficulty breathing GASTROINTESTINAL: abdominal pain nausea vomiting diarrhea GENITOURINARY: No dysuria No hematuria No difficulty urinating MUSCULOSKELETAL: No back pain No leg pain No arm pain SKIN: No rashes No lesions LYMPHATIC: No swollen, enlarged glands. NEUROLOGICAL: No lightheadedness No headache No weakness No paresthesias PSYCHIATRIC: No anxiety No depression PHYSICAL EXAMINATION: Vital signs reviewed, nursing noted reviewed. GENERAL: Well-appearing, well-nourished and in no acute distress. HEAD: Atraumatic, normocephalic. EYES: Eyes appear normal, extraocular movements intact, sclera anicteric, conjunctiva are normal. ENT: nares patent, oropharynx clear without exudates. Moist mucous membranes. NECK: Normal range of motion, supple without lymphadenopathy LUNGS: Breath sounds clear to auscultation bilaterally and equal. No wheezes rales or rhonchi. HEART: Regular rate and rhythm without murmurs ABDOMEN: Soft, nontender, normoactive bowel sounds. No rebound, guarding, or rigidity. No masses appreciated. EXTREMITIES: Nontender, good range of motion, no pitting or edema. NEUROLOGICAL: No focal neurological deficits. Moves all extremities spontaneously Motor and sensory grossly intact on exam. PSYCH: Normal mood, normal affect. SKIN: Warm, Dry, normal turgor, no rashes or lesions noted on exposed skin - Related Data Allergies/Adverse Reactions: No Known Allergies Allergy (Verified 04/02/17 01:16) Past Medical History - Social History Smoking Status: Never Smoker Family History: Reviewed & Not Pertinent Patient has suicidal ideation: No Patient has homicidal ideation: No - Past Medical History Cardiac Medical History: Reports: Hx Hypertension Denies: Hx Coronary Artery Disease, Hx Heart Attack Pulmonary Medical History: Reports: Hx Asthma, Hx Bronchitis, Hx Pneumonia Denies: Hx COPD Neurological Medical History: Denies: Hx Cerebrovascular Accident, Hx Seizures Renal/ Medical History: Denies: Hx Peritoneal Dialysis GI Medical History: 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 Nursing notes reviewed. Patient's abdomen is soft with no peritoneal signs. She is afebrile and nontoxic in appearance. 08/23/18 18:03 Patient's lab work shows a mild hyponatremia consistent with her vomiting. She otherwise appears well-hydrated. She has normal renal function. UA negative for infection. She will continue taking antiemetics and Bentyl at home as already prescribed. She will continue to increase her oral hydration. She will follow with her primary care doctor for reevaluation in the next few days. Laboratory 08/23/18 08/23/18 08/23/18 16:58 16:58 16:58 WBC 9.6 RBC 5.11 Hgb 13.2 Hct 38.1 MCV 74 L MCH 25.8 L MCHC 34.6 RDW 14.4 H Plt Count 199 Seg Neutrophils % 67.3 Lymphocytes % 21.5 Monocytes % 9.5 Eosinophils % 1.1 Basophils % 0.6 Absolute Neutrophils 6.4 Absolute Lymphocytes 2.1 Absolute Monocytes 0.9 Absolute Eosinophils 0.1 Absolute Basophils 0.1 Sodium 136.7 L Potassium 3.7 Chloride 98 Carbon Dioxide 31 H Anion Gap 8 BUN 10 Creatinine 1.04 Est GFR ( Amer) > 60 Est GFR (Non-Af Amer) 58 L Glucose 99 Calcium 9.2 Total Bilirubin 0.9 Direct Bilirubin 0.5 H Neonat Total Bilirubin Not Reportable Neonat Direct Bilirubin Not Reportable Neonat Indirect Bili Not Reportable AST 21 ALT 10 Alkaline Phosphatase 70 Total Protein 7.4 Albumin 3.9 Urine Color ALBERTO Urine Appearance CLOUDY Urine pH 5.0 Ur Specific Harrah 1.015 Urine Protein 100 H Urine Glucose (UA) NEGATIVE Urine Ketones NEGATIVE Urine Blood NEGATIVE Urine Nitrite NEGATIVE Urine Bilirubin NEGATIVE Urine Urobilinogen NEGATIVE Ur Leukocyte Esterase NEGATIVE Urine WBC (Auto) 12 Urine RBC (Auto) 3 Urine Bacteria (Auto) 3+ Squamous Epi Cells Auto 30 Urine Mucus (Auto) RARE Urine Ascorbic Acid NEGATIVE - Vital Signs Vital signs: Temp Pulse Resp BP Pulse Ox 98.4 F 79 18 154/100 H 99 08/23/18 16:04 08/23/18 16:04 08/23/18 16:04 08/23/18 16:04 08/23/18 16:04 - Laboratory Result Diagrams: 08/23/18 16:58 08/23/18 16:58 Laboratory results interpreted by me: 08/23/18 08/23/18 08/23/18 16:58 16:58 16:58 MCV 74 L MCH 25.8 L RDW 14.4 H Sodium 136.7 L Carbon Dioxide 31 H Est GFR (Non-Af Amer) 58 L Direct Bilirubin 0.5 H Urine Protein 100 H Discharge - Discharge Clinical Impression: Nausea vomiting and diarrhea, Elevated blood pressure reading Condition: Stable Disposition: HOME, SELF-CARE Instructions: Antinausea Medication ([facility]), Diarrhea, Nonspecific ([facility]) Additional Instructions: Please return to the emergency department if you have any worsening, or concern of your symptoms. Please return to the emergency department if you develop chest pain, difficulty breathing, severe abdominal pain, or ongoing vomiting. Please follow-up with your primary care physician in 2-3 days and any other recommended physicians. If prescribed, take all medications as directed. If you have any questions or concerns do not hesitate to return the emergency department for evaluation. Drink lots of water to stay hydrated. Prescriptions: Ondansetron [Zofran Odt 4 mg Tablet] 1 tab PO Q4H PRN #15 tab.rapdis PRN Reason: For Nausea/Vomiting Referrals: TRINI PINA MD [Primary Care Provider] - Follow up in 3-5 days
[2018-08-23 17:35] LABS: ABSOLUTE BASOPHILS # (AUTO) 0.1 10^3/uL (0.0-0.2); ABSOLUTE EOSINOPHILS # (AUTO) 0.1 10^3/uL (0.0-0.6); ABSOLUTE LYMPHOCYTES (AUTO) 2.1 10^3/uL (0.5-4.7); ABSOLUTE MONOCYTES (AUTO) 0.9 10^3/uL (0.1-1.4); ABSOLUTE NEUT (AUTO) 6.4 10^3/uL (1.7-8.2); APPEARANCE,URINE CLOUDY; BASOPHILS % (AUTO) 0.6 % (0-2); BILIRUBIN,URINE NEGATIVE (NEGATIVE); COLOR,URINE AMBER; EOSINOPHILS % (AUTO) 1.1 % (0-6); GLUCOSE, URINE NEGATIVE (NEGATIVE); HEMATOCRIT 38.1 % (36.0-47.0); HEMOGLOBIN 13.2 g/dL (12.0-15.5); KETONES,URINE NEGATIVE (NEGATIVE); LEUKOCYTE ESTERASE,URINE NEGATIVE (NEGATIVE); LYMPHOCYTES % (AUTO) 21.5 % (13-45); MEAN CORPUSCULAR HEMOGLOBIN 25.8 pg (27.0-33.4); MEAN CORPUSCULAR HGB CONC 34.6 g/dL (32.0-36.0); MEAN CORPUSCULAR VOLUME 74 fl (80-97); MONOCYTES % (AUTO) 9.5 % (3-13); NITRITE,URINE NEGATIVE (NEGATIVE); PLATELET COUNT 199 10^3/uL (150-450); PROTEIN,URINE 100 mg/dL (NEGATIVE); RED BLOOD COUNT 5.11 10^6/uL (3.72-5.28); RED CELL DISTRIBUTION WIDTH 14.4 % (11.5-14.0); SEGMENTED NEUTROPHILS % (AUTO) 67.3 % (42-78); TOTAL CELLS COUNTED % (AUTO) 100 %; URINE SPECIFIC GRAVITY 1.015; UROBILINOGEN,URINE NEGATIVE mg/dL (<2.0); WHITE BLOOD COUNT 9.6 10^3/uL (4.0-10.5)
[2018-08-23 17:50] LABS: ALANINE AMINOTRANSFERASE 10 U/L (9-52); ALBUMIN 3.9 g/dL (3.5-5.0); ALKALINE PHOSPHATASE 70 U/L (38-126); ANION GAP 8 (5-19); ASPARTATE AMINO TRANSFERASE 21 U/L (14-36); BILIRUBIN,DIRECT 0.5 mg/dL (0.0-0.4); BILIRUBIN,TOTAL 0.9 mg/dL (0.2-1.3); BLOOD UREA NITROGEN 10 mg/dL (7-20); CALCIUM 9.2 mg/dL (8.4-10.2); CARBON DIOXIDE 31 mmol/L (22-30); CHLORIDE 98 mmol/L (98-107); GLUCOSE 99 mg/dL (75-110); POTASSIUM 3.7 mmol/L (3.6-5.0); SODIUM 136.7 mmol/L (137-145); TOTAL PROTEIN 7.4 g/dL (6.3-8.2)
[2018-08-23 18:37] VITALS: BP 155/83
== END 2018-08-23 18:36 | disposition home or self-care (01) ==
LOC: ER 16:01
DX: R11.2 Nausea with vomiting, unspecified (principal); R19.7 Diarrhea, unspecified; I10 Essential (primary) hypertension; R10.84 Generalized abdominal pain; J45.909 Unspecified asthma, uncomplicated; E87.6 Hypokalemia; Z90.710 Acquired absence of both cervix and uterus; Z98.51 Tubal ligation status
CPT/HCPCS: 99284; 96361; 96374; 96375; 36415; 85025; 80053; 81001; J1885; J2405; J7030

== ENCOUNTER → 2018-09-07 | Outpatient (CLI) | payer MEDICAID ==
[2018-09-07 10:48] LABS: HEMATOCRIT 36.3 % (36.0-47.0); HEMOGLOBIN 12.3 g/dL (12.0-15.5); MEAN CORPUSCULAR HEMOGLOBIN 26.2 pg (27.0-33.4); MEAN CORPUSCULAR HGB CONC 34.1 g/dL (32.0-36.0); MEAN CORPUSCULAR VOLUME 77 fl (80-97); PLATELET COUNT 226 10^3/uL (150-450); RED BLOOD COUNT 4.71 10^6/uL (3.72-5.28); RED CELL DISTRIBUTION WIDTH 15.1 % (11.5-14.0); WHITE BLOOD COUNT 4.5 10^3/uL (4.0-10.5)
[2018-09-07 10:54] LABS: AMORPHOUS SEDIMENT,URINE TRACE /HPF; APPEARANCE,URINE CLOUDY; BILIRUBIN,URINE NEGATIVE (NEGATIVE); COLOR,URINE YELLOW; GLUCOSE, URINE NEGATIVE (NEGATIVE); KETONES,URINE NEGATIVE (NEGATIVE); LEUKOCYTE ESTERASE,URINE NEGATIVE (NEGATIVE); NITRITE,URINE NEGATIVE (NEGATIVE); PROTEIN,URINE NEGATIVE (NEGATIVE); URINE SPECIFIC GRAVITY 1.008; UROBILINOGEN,URINE NEGATIVE mg/dL (<2.0)
[2018-09-07 11:20] LABS: ANION GAP 5 (5-19); BLOOD UREA NITROGEN 15 mg/dL (7-20); CARBON DIOXIDE 31 mmol/L (22-30); CHLORIDE 104 mmol/L (98-107); GLUCOSE 90 mg/dL (75-110); POTASSIUM 4.7 mmol/L (3.6-5.0); SODIUM 139.6 mmol/L (137-145)
[2018-09-09 19:44] LABS: RENIN ACTIVITY 0.288 ng/mL/hr (0.167-5.38)
== END ==
LOC: OD 09:22
PROVIDERS: ATTEND Internal Medicine Nephrology
DX: I16.0 Hypertensive urgency (principal); I12.9 Hypertensive chronic kidney disease with stage 1 through stage 4 chronic kidney disease, or unspecified chronic kidney disease; N18.2 Chronic kidney disease, stage 2 (mild)
CPT/HCPCS: 36415; 80048; 81001; 82088; 83835; 84244; 85027

== ENCOUNTER → 2018-09-07 | Outpatient (CLI) | payer MEDICAID ==
--- NOTE | 2018-09-07 09:39 | RADIOLOGY REPORT (SQ) ---
EXAM DESCRIPTION: [facility] DUPLEX ART/CINDY FLOW COMPLETED DATE/TIME: 09/07/2018 9:19 am REASON FOR STUDY: ESSENTIAL PRIMARY HYPERTENSION I10 ESSENTIAL (PRIMARY) HYPERTENSION COMPARISON: None. TECHNIQUE: Realtime and static grayscale images acquired. Selected color Doppler, velocities and spe ctral images recorded. LIMITATIONS: None. FINDINGS: RIGHT KIDNEY: RENAL ARTERY VELOCITIES: 112 cm/sec. Segmental artery velocity 53 cm/sec. RENAL VEIN: Color doppler flow present, patent. VELOCITY RATIO: 0.9. Normal waveforms. KIDNEY: Normal size. No significant pathology. LEFT KIDNEY: RENAL ARTERY VELOCITIES: 73 cm/sec. Segmental artery velocity 40 cm/sec. RENAL VEIN: Color doppler flow present, patent. VELOCITY RATIO: 0.6. Normal waveforms. KIDNEY: Normal size. No significant pathology. BLADDER: Normal. OTHER: No other significant finding. IMPRESSION: NO DOPPLER EVIDENCE OF HEMODYNAMICALLY SIGNIFICANT RENAL ARTERY STENOSIS. COMMENT: NORMAL RENAL ARTERY/AORTA VELOCITY RATIO IS LESS THAN OR EQUAL TO 3.5. TECHNICAL DOCUMENTATION: JOB ID: [id number] [employer]- All Rights Reserved Reading location - IP/workstation name: [email or web address]
--- NOTE | 2018-09-07 09:41 | RADIOLOGY REPORT (SQ) ---
EXAM DESCRIPTION: [facility] [employer] COMPLETED DATE/TIME: 09/07/2018 9:19 am REASON FOR STUDY: ESSENTIAL PRIMARY HYPERTENSION I10 ESSENTIAL (PRIMARY) HYPERTENSION COMPARISON: None. TECHNIQUE: Dynamic and static grayscale images acquired of the kidneys and bladder and recorded on P ACS. Additional selected color Doppler and spectral images recorded. LIMITATIONS: None. FINDINGS: RIGHT KIDNEY: Normal size. Normal echogenicity. No solid or suspicious masses. No h ydronephrosis. No calcifications. LEFT KIDNEY: Normal size. Normal echogenicity. No solid or suspicious masses. No hydronephrosi s. No calcifications. BLADDER: Not imaged. OTHER FINDINGS: Incidental gallstones. IMPRESSION: NORMAL RENAL ULTRASOUND. TECHNICAL DOCUMENTATION: JOB ID: [id number] [employer]- All Rights Reserved Reading location - IP/workstation name: [email or web address]
== END ==
LOC: RAD 08:14
PROVIDERS: ATTEND Internal Medicine Nephrology
DX: I10 Essential (primary) hypertension (principal)
CPT/HCPCS: 76775; 93976

== ENCOUNTER 2018-09-17 12:19 | Emergency (ER) | payer MEDICAID ==
[2018-09-17] MEDS ORDERED: IPRATROPIUM/ALBUTEROL 0.5-2.5 MG/3 ML AMPUL NEB ONE (12:41)
[2018-09-17] MEDS ORDERED: PREDNISONE 20 MG TABLET PO ONE (12:41)
--- NOTE | 2018-09-17 12:42 | ER Document Report ---
HPI - HPI Patient complains to provider of: Cough Time Seen by Provider: 09/17/18 12:32 Onset: Last week Onset/Duration: Persistent Pain Level: 0 Context: Patient presents complaining of productive cough with shortness of breath for the past week. Patient denies any fever. Patient does have a history of asthma, does not have any asthma medication at home. Associated Symptoms: Body/muscle aches, Nonproductive cough, Rhinnorhea, Shortness of breath. denies: Fever Exacerbated by: Denies Relieved by: Denies Similar symptoms previously: Yes Recently seen / treated by doctor: No - ROS ROS below otherwise negative: Yes Systems Reviewed and Negative: Yes All other systems reviewed and negative - CONSTITUTIONAL Constitutional: DENIES: Fever - EENT EENT: REPORTS: Congestion - CARDIOVASCULAR Cardiovascular: DENIES: Chest pain - RESPIRATORY Respiratory: REPORTS: Coughing. DENIES: Trouble Breathing - GASTROINTESTINAL Gastrointestinal: DENIES: Nausea, Patient vomiting, Diarrhea - REPRODUCTIVE Reproductive: DENIES: : - MUSCULOSKELETAL Musculoskeletal: DENIES: Back Pain - DERM Skin Color: Normal Skin Problems: None Past Medical History - General Information source: Patient - Social History Smoking Status: Never Smoker Frequency of alcohol use: None Drug Abuse: None Occupation: [employer] Family History: Reviewed & Not Pertinent - Past Medical History Cardiac Medical History: Reports: Hx Hypertension Pulmonary Medical History: Reports: Hx Asthma, Hx Bronchitis, Hx Pneumonia Denies: Hx COPD Neurological Medical History: Denies: Hx Cerebrovascular Accident, Hx Seizures Renal/ Medical History: Denies: Hx Peritoneal Dialysis GI Medical History: 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 IN LAST 30 DAYS: No - HEENT HEENT: Atraumatic, Normocephalic. negative: Pharyngeal Exudate, Pharyngeal Tenderness, Pharyngeal Erythema, Tympanic Membrane Red, Tympanic Membrane Bulging - NECK Neck: Normal Inspection, Supple. negative: Lymphadenopathy-Left, Lymphadenopathy-Right - RESPIRATORY Respiratory: No Respiratory Distress, Chest Non-Tender, Wheezing - with cough - CARDIOVASCULAR Cardiovascular: Regular Rate, Regular Rhythm, No Murmur. negative: Tachycardia - GI/ABDOMEN Gastrointestinal: Abdomen Soft - BACK Back: Normal Inspection - MUSCULOSKELETAL/EXTREMETIES Musculoskeletal/Extremeties: ALIREZA ROSAS - NEURO Level of Consciousness: Awake, Alert, Appropriate Motor/Sensory: No Motor Deficit - DERM Integumentary: Warm, Dry, No Rash Course - Re-evaluation Re-evalutation: 09/17/18 Patient with good air movement bilaterally. Decreased wheezing after nebulizer treatment. Patient with findings worrisome for possible pneumonia to right lower lobe noted on x-ray. Patient does complain of productive cough for the past week that has worsened. Will cover with antibiotics, good return precautions discussed with patient. - Vital Signs Vital signs: Temp Pulse Resp BP Pulse Ox 98.1 F 64 20 164/92 H 100 09/17/18 12:24 09/17/18 12:24 09/17/18 12:24 09/17/18 12:24 09/17/18 12:24 - Diagnostic Test Radiology reviewed: Reports reviewed Discharge - Discharge Clinical Impression: Wheezing Pneumonia Qualifiers: Pneumonia type: due to unspecified organism Laterality: right Lung location: lower lobe of lung Qualified Code(s): J18.1 - Lobar pneumonia, unspecified organism Asthma Qualifiers: Asthma severity: unspecified severity Asthma persistence: unspecified Asthma complication type: unspecified Qualified Code(s): J45.909 - Unspecified asthma, uncomplicated Condition: Stable Disposition: HOME, SELF-CARE Additional Instructions: Return immediately for any new or worsening symptoms Followup with your primary care provider, call tomorrow to make a followup appointment PNEUMONIA: Your examination indicates that you have pneumonia. This is an infection of the lung tissue, usually caused by bacteria or a virus. Symptoms include cough, fever, shaking chills, chest pain, shortness of breath, and coughing up bloody sputum. Treatment for bacterial pneumonia includes rest, antibiotics for 10 to 14 days, increasing your clear liquid intake, a cool mist humidifier at your bedside, and fever medication. Often, a repeat chest X-ray is performed in a few weeks--even if you feel better--to ascertain whether the infection has completely resolved and no underlying lung problem is present. You should call the physician if you develop persistent vomiting, high fever that does not respond to fever medication, increasing shortness of breath, confusion, or lethargy. Also, failure to improve within two to three days is an indication for re-examination. ANTIBIOTIC INJECTION: You have been given an antibiotic injection. Sometimes the injection must be combined with antibiotic pills. For some infections, the shot provides all t he antibiotic that's needed. Common side effects of antibiotics include nausea, intestinal cramping, or diarrhea. These are very unusual following a shot. Women may develop vaginal yeast infections, and babies can get yeast (thrush) in the mouth following the use of antibiotics. Contact your physician if you develop significant side effects from this medication. Allergy to this antibiotic can result in hives, wheezing, faintness, or itching. If symptoms of allergy occur, call the doctor at once. ROCEPHIN: You have been given an injection of an antibiotic called Rocephin (ceftriaxone). Sometimes the injection must be combined with antibiotic pills. For some infections, such as an uncomplicated ear infection, Rocephin provides all the antibiotic that's needed. The antibiotic will be in your body for about two days. For serious infections, we usually repeat doses of Rocephin daily. Side effects are very unusual following a shot. Women may develop vaginal yeast infections, and babies can get yeast (thrush) in the mouth following the use of antibiotics. Contact your physician if you have symptoms with this medication. Allergy to this antibiotic can result in hives, wheezing, faintness, or itching. If symptoms of allergy occur, call the doctor at once. DOXYCYCLINE: Doxycycline (Vibramycin, Doryx) is an antibiotic of the tetracycline family. This type of drug is useful for infections of the respiratory tract and genital tract, and is sometimes used for intestinal infections. Unlike most tetracyclines, doxycycline can be taken with food. It is longer acting, and (usually) less prone to side effects than regular tetracycline. Tetracycline antibiotics can stain immature teeth and SHOULD NOT BE TAKEN BY CHILDREN, NURSING MOTHERS, OR WOMEN. Tetracyclines can make you more prone to sunburn. Abdominal cramping, nausea, and diarrhea are occasional side effects. Women may experience vaginal yeast infections. Call the doctor at once if you develop hives, itching, shortness of breath, or lightheadedness. USE OF ACETAMINOPHEN (Tylenol): Acetaminophen may be taken for pain relief or fever control. It's much safer than aspirin, offering a wider range of "safe" dosages. It is safe during . Some brand names are Tylenol, Panadol, Datril, Anacin 3, Tempra, and Liquiprin. Acetaminophen can be repeated every four hours. The following are maximum recommended dosages: WEIGHT Dose Drops Elixir Chewable(80mg) (LBS.) drprs=droppers tsp=teaspoon 6 40 mg 0.4 ml (1/2) 6-11 80 mg 0.8 ml (full) tsp 1 tab 12-16 120 mg 1 1/2 drprs 3/4 tsp 1 1/2 tabs 17-23 160 mg 2 drprs 1 tsp 2 tabs 24-30 240 mg 3 drprs 1 1/2 tsp 3 tabs 30-35 320 mg 2 tsp 4 tabs 36-41 360 mg 2 1/4 tsp 4 1/2 tabs 42-47 400 mg 2 1/2 tsp 5 tabs 48-53 480 mg 3 tsp 6 tabs 54-59 520 mg 3 1/4 tsp 6 1/2 tabs 60-64 560 mg 3 1/2 tsp 7 tabs 65-70 600 mg 3 3/4 tsp 7 1/2 tabs 71-76 640 mg 4 tsp 8 tabs 77-82 720 mg 4 1/2 tsp 9 tabs 83-88 800 mg 5 tsp 10 tabs >89 pounds or adults 650 mg to 900 mg Acetaminophen can be repeated every four hours. Maximum dose not to exceed 4000 mg a day. These maximum recommended dosages are slightly higher than the dosages written on the product container, but these dosages are very safe and below the toxic dosage for acetaminophen. FOLLOW-UP CARE: If you have been referred to a physician for follow-up care, call the physicians office for an appointment as you were instructed or within the next two days. If you experience worsening or a significant change in your symptoms, notify the physician immediately or return to the Emergency Department at any time for re-evaluation. Prescriptions: Benzonatate [Tessalon Perle 100 mg Capsule] 100 mg PO Q8HP PRN #20 cap PRN Reason: Albuterol Sulfate [Ventolin 0.083% Neb 2.5 mg/3 ml Ampul] 1 vial NEB Q4 PRN #30 vial PRN Reason: Doxycycline Hyclate 100 mg PO BID #20 capsule Prednisone [Deltasone 10 mg Tablet] 10 mg PO ASDIR PRN #21 tablet PRN Reason: Forms: Return to Work Referrals: Christian STRATTON MD [ACTIVE STAFF] - Follow up as needed TRINI PINA MD [Primary Care Provider] - Follow up as needed
--- NOTE | 2018-09-17 13:16 | RADIOLOGY REPORT (SQ) ---
EXAM DESCRIPTION: CHEST 2 VIEWS COMPLETED DATE/TIME: 09/17/2018 1:07 pm REASON FOR STUDY: cough COMPARISON: 07/11/2018 EXAM PARAMETERS: NUMBER OF VIEWS: two views TECHNIQUE: Digital Frontal and Lateral radiographic views of the chest acquired. RADIATION DOSE: NA LIMITATIONS: none FINDINGS: LUNGS AND PLEURA: Cannot exclude a minimal opacification in the right base laterally. MEDIASTINUM AND HILAR STRUCTURES: No masses or contour abnormalities. HEART AND VASCULAR STRUCTURES: Normal heart size. No aneurysm. BONES: No acute findings. HARDWARE: None in the chest. OTHER: No other significant finding. IMPRESSION: Cannot exclude a minimal right lower lobe infiltrate. TECHNICAL DOCUMENTATION: JOB ID: [id number] [employer]- All Rights Reserved Reading location - IP/workstation name: [email or web address]
[2018-09-17] MEDS ORDERED: DOXYCYCLINE HYCLATE 100 MG TABLET PO ONE (13:44)
[2018-09-17] MEDS ORDERED: CEFTRIAXONE INJ 1000 MG VIAL IM ONE (13:44)
[2018-09-17] MEDS ORDERED: LIDOCAINE 1% INJ-PF (10 MG/ML) 30 ML SDV INJ ONE (13:45)
[2018-09-17 14:45] VITALS: BP 160/90
== END 2018-09-17 14:40 | disposition home or self-care (01) ==
LOC: ER 12:19
DX: J18.1 Lobar pneumonia, unspecified organism (principal); J45.909 Unspecified asthma, uncomplicated; R05 Cough; R06.02 Shortness of breath; M79.10 Myalgia, unspecified site; J34.89 Other specified disorders of nose and nasal sinuses; I10 Essential (primary) hypertension
CPT/HCPCS: 94640; 99283; 96372; 71046; J3490 ×2; J7512; J0696; J7620

== ENCOUNTER 2019-02-07 09:23 | Emergency (ER) | payer SELFPAY ==
[2019-02-07 09:30] VITALS: BP 161/108
[2019-02-07] MEDS ORDERED: METHYLPREDNISOLONE INJ 125 MG/2 ML SDV IM ONE (09:36)
[2019-02-07] MEDS ORDERED: IPRATROPIUM/ALBUTEROL 0.5-2.5 MG/3 ML AMPUL NEB ONE (09:36)
--- NOTE | 2019-02-07 09:39 | ER Document Report ---
HPI - HPI Time Seen by Provider: 02/07/19 09:31 Pain Level: 1 Notes: Patient is a 44-year-old female with a history of asthma and hypertension who presents complaining of semi-productive cough with associated wheezing over the past 10 days. Patient states that she has been using her inhalers at home which help a little bit. She is eating and drinking without difficulties. She is urinating normally. Denies drug allergies. Patient states that she has had flareups like this in the past. Denies any headache, fever, neck pain, sore throat, chest pain, palpitations, syncope, shortness of breath, dyspnea, abdominal pain, nausea/vomiting/diarrhea, urinary retention, dysuria, hematuria, or rash. 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 A&Ox4. Answers questions appropriately. Moves comfortably w/o notable distress HEAD: Atraumatic, normocephalic. EYES: Pupils equal round and reactive to light, extraocular movements intact, sclera anicteric, conjunctiva are normal. ENT: EAC clear b/l. TM's intact b/l without erythema, fluid, or perforation. Nares patent and without discharge. oropharynx no erythema without exudates. No tonsilar hypertrophy without erythema or exudate. No palatine shift. Uvula midline. No tongue protrusion. No drooling, hoarseness, or airway compromise. Moist mucous membranes. No sinus tenderness. NECK: Normal range of motion, supple without lymphadenopathy. No rigidity/meningismus. LUNGS: wheezes b/l base. no retractions HEART: Regular rate and rhythm without murmurs, rubs, gallops. NEUROLOGICAL: Normal speech, normal gait. PSYCH: Normal mood, normal affect. SKIN: Warm, Dry, normal turgor, no rashes or lesions noted. - INFECTION CONTROL TRAVEL OUTSIDE OF THE [place] IN LAST 30 DAYS: No Course - Re-evaluation Re-evalutation: 02/07/19 10:44 Patient is an afebrile, well-hydrated, 44-year-old female who presents with asthma exacerbation and URI which I suspect viral. Vitals are acceptable without significant tachycardia, tachypnea, or hypoxia. Patient was given Solu- Medrol and breathing treatment which significantly improved lung sounds. Chest x-ray was unremarkable for acute pathology. No further work-up warranted at this time. Patient is feeling better after treatment was given. Patient is nontoxic-appearing and is able to tolerate p.o. without difficulty. Low suspi cion for any pneumonia, ACS, PE, pneumothorax, pericarditis, dissection, respiratory compromise, severe dehydration, sepsis, meningitis, or other systemic emergent condition at this time. Patient is aware that her condition can change from initial presentation and she needs to monitor symptoms closely and seek medical attention for any acute changes. I will send her home with prednisone and Tessalon. Recommend conservative measures for symptoms. Recheck with your PCM in 2-3 days. Return to the ED with any worsening/concerning symptoms otherwise as reviewed in discharge. Patient is in agreement. Pt has not taken her clonidine today for BP. It is in her car and she will take when she is discharged. - Vital Signs Vital signs: Temp Pulse Resp BP Pulse Ox 98.8 F 79 18 161/108 H 96 02/07/19 09:28 02/07/19 09:28 02/07/19 09:28 02/07/19 09:28 02/07/19 09:28 Discharge - Discharge Clinical Impression: Acute URI Asthma exacerbation Qualifiers: Asthma severity: mild Asthma persistence: intermittent Qualified Code(s): J45.21 - Mild intermittent asthma with (acute) exacerbation Condition: Stable Disposition: HOME, SELF-CARE Instructions: Upper Respiratory Illness ([facility]) Additional Instructions: Maintain adequate fluid intake tylenol/ibuprofen as needed alternating every 3 hours for fever/body ache over the counter cold medication as needed for symptoms Humidified air may help Wash your hands regularly Wear a mask when coughing F/u: with your PCM in 2-3 days for a recheck Return to the ED with any fever, altered mental status/behavior, chest pain, palpitations, syncope, headache, neck pain/stiffness, shortness of breath, chest pains, wheezing, drooling, trouble swallowing/breathing, abdominal pain, n/v/d, rash, or worsening/concerning symptoms otherwise. Prescriptions: Benzonatate [Tessalon Perle 100 mg Capsule] 100 mg PO Q8HP PRN #15 cap PRN Reason: Prednisone [Deltasone 20 mg Tablet] 3 tab PO DAILY 4 Days tablet Forms: Elevated Blood Pressure, Return to Work Referrals: TRINI PIAN MD [Primary Care Provider] - 02/10/19
--- NOTE | 2019-02-07 10:43 | RADIOLOGY REPORT (SQ) ---
EXAM DESCRIPTION: CHEST 2 VIEWS COMPLETED DATE/TIME: 02/07/2019 10:19 am REASON FOR STUDY: cough/wheeze COMPARISON: 09/17/2018 EXAM PARAMETERS: NUMBER OF VIEWS: two views TECHNIQUE: Digital Frontal and Lateral radiographic views of the chest acquired. RADIATION DOSE: NA LIMITATIONS: none FINDINGS: LUNGS AND PLEURA: No opacities, masses or pneumothorax. No pleural effusion. MEDIASTINUM AND HILAR STRUCTURES: No masses or contour abnormalities. HEART AND VASCULAR STRUCTURES: Borderline heart size. No pulmonary edema. BONES: No acute findings. HARDWARE: None in the chest. OTHER: No other significant finding. IMPRESSION: Borderline cardiomegaly without pulmonary edema. TECHNICAL DOCUMENTATION: JOB ID: [id number] [employer]- All Rights Reserved Reading location - IP/workstation name: [email or web address]
== END 2019-02-07 11:08 | disposition home or self-care (01) ==
LOC: ER 09:23
DX: J45.21 Mild intermittent asthma with (acute) exacerbation (principal); J06.9 Acute upper respiratory infection, unspecified; I10 Essential (primary) hypertension; Z90.710 Acquired absence of both cervix and uterus; Z98.51 Tubal ligation status
CPT/HCPCS: 94640; 99283; 96372; 71046; J2930; J7620

== ENCOUNTER 2019-02-13 14:16 | Emergency (ER) | payer SELFPAY ==
[2019-02-13] MEDS ORDERED: IPRATROPIUM/ALBUTEROL 0.5-2.5 MG/3 ML AMPUL NEB ONE (15:31)
[2019-02-13] MEDS ORDERED: METHYLPREDNISOLONE INJ 125 MG/2 ML SDV IV ONE (15:32)
[2019-02-13] MEDS ORDERED: ONDANSETRON HCL INJ/PF 4 MG/2 ML SDV IV ONE (15:32)
[2019-02-13] MEDS ORDERED: NORMAL SALINE 1000 ML 1,000 ML IV ONE (15:32)
--- NOTE | 2019-02-13 15:35 | ER Document Report ---
ED Medical Screen (RME) - General Chief Complaint: Nausea/Vomiting/Diarrhea Stated Complaint: COUGH,BACK PAIN Time Seen by Provider: 02/13/19 15:29 Primary Care Provider: TRINI PINA MD [Primary Care Provider] - Follow up as needed Notes: Patient is a 44-year-old female presents to the emergency department for generalized cough and congestion since 01/29/2019. Patient states she was here on Thursday diagnosed with a viral URI. States she was placed on steroids and Tessalon Perles. States she has been taking her albuterol "as prescribed." States last time she took it was around noon this afternoon. States she continues with generalized cough, intermittent respiratory distress and in the last 24 hours has had over 10 episodes of non-posttussive vomiting is denying blood. Patient states she is also had 6 episodes of generalized diarrhea also denying blood in her stool. Patient's denying any abdominal pain only complaining of generalized nausea. Patient's denying any dysuria, chest pain, fevers. Past medical history: Fibromyalgia, hypertension, asthma Medications: Amlodipine, gabapentin, clonidine, Diovan, albuterol, Symbicort, HCTZ Allergies: None GENERAL: Alert, interacts well. Intermittently coughing. LUNGS: Expiratory wheeze heard bilaterally, No respiratory distress. ABDOMEN: Soft, non-tender. Non-distended. Bowel sounds present in all 4 quadrants. I have greeted and performed a rapid initial assessment of this patient. A comprehensive ED assessment and evaluation of the patient, analysis of test results and completion of the medical decision making process will be conducted by additional ED providers. I have specifically instructed the patient or family members with the patient to immediately return to any nursing staff should anything change in the patient's condition or with their chief complaint. This medical record was dictated with voice recognizing software. There may be grammatical, syntax errors that are unintended. TRAVEL OUTSIDE OF THE [place] 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 Musculoskeltal Medical History: Denies Hx Arthritis, Reports Hx Fibromyalgia Infectious Medical History: 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 Past Surgical History: Reports: Hx Hysterectomy, Hx Tubal Ligation - Immunizations Immunizations up to date: Yes Hx Diphtheria, Pertussis, Tetanus Vaccination: Yes - 2008 Physical Exam - Vital signs Vitals: Temp Pulse Resp BP Pulse Ox 98.7 F 66 18 166/108 H 99 02/13/19 14:24 02/13/19 14:24 02/13/19 14:24 02/13/19 14:24 02/13/19 14:24 Course - Vital Signs Vital signs: Temp Pulse Resp BP Pulse Ox 98.7 F 66 18 166/108 H 99 02/13/19 14:24 02/13/19 14:24 02/13/19 14:24 02/13/19 14:24 02/13/19 14:24 Doctor's Discharge - Discharge Referrals: TRINI PINA MD [Primary Care Provider] - Follow up as needed
[2019-02-13 16:56] LABS: ABSOLUTE BASOPHILS # (AUTO) 0.1 10^3/uL (0.0-0.2); ABSOLUTE EOSINOPHILS # (AUTO) 0.4 10^3/uL (0.0-0.6); ABSOLUTE LYMPHOCYTES (AUTO) 3.4 10^3/uL (0.5-4.7); ABSOLUTE MONOCYTES (AUTO) 0.6 10^3/uL (0.1-1.4); ABSOLUTE NEUT (AUTO) 5.1 10^3/uL (1.7-8.2); BASOPHILS % (AUTO) 0.9 % (0-2); EOSINOPHILS % (AUTO) 4.6 % (0-6); HEMATOCRIT 41.5 % (36.0-47.0); HEMOGLOBIN 13.9 g/dL (12.0-15.5); LYMPHOCYTES % (AUTO) 35.5 % (13-45); MEAN CORPUSCULAR HEMOGLOBIN 25.3 pg (27.0-33.4); MEAN CORPUSCULAR HGB CONC 33.4 g/dL (32.0-36.0); MEAN CORPUSCULAR VOLUME 76 fl (80-97); MONOCYTES % (AUTO) 6.2 % (3-13); PLATELET COUNT 235 10^3/uL (150-450); RED BLOOD COUNT 5.48 10^6/uL (3.72-5.28); RED CELL DISTRIBUTION WIDTH 16.3 % (11.5-14.0); SEGMENTED NEUTROPHILS % (AUTO) 52.8 % (42-78); TOTAL CELLS COUNTED % (AUTO) 100 %; WHITE BLOOD COUNT 9.6 10^3/uL (4.0-10.5)
[2019-02-13 17:04] LABS: ALANINE AMINOTRANSFERASE 21 U/L (9-52); ALBUMIN 4.1 g/dL (3.5-5.0); ANION GAP 6 (5-19); ASPARTATE AMINO TRANSFERASE 19 U/L (14-36); BILIRUBIN,DIRECT 0.2 mg/dL (0.0-0.4); BILIRUBIN,TOTAL 0.6 mg/dL (0.2-1.3); BLOOD UREA NITROGEN 16 mg/dL (7-20); CALCIUM 9.2 mg/dL (8.4-10.2); CARBON DIOXIDE 34 mmol/L (22-30); CHLORIDE 99 mmol/L (98-107); GLUCOSE 93 mg/dL (75-110); NEONATAL BILIRUBIN RESULT 0.4 mg/dL (0.1-1.1); POTASSIUM 4.1 mmol/L (3.6-5.0); SODIUM 138.6 mmol/L (137-145); TOTAL PROTEIN 7.4 g/dL (6.3-8.2)
[2019-02-13 17:05] LABS: ALKALINE PHOSPHATASE 48 U/L (38-126)
--- NOTE | 2019-02-13 17:39 | RADIOLOGY REPORT (SQ) ---
EXAM DESCRIPTION: CHEST 2 VIEWS COMPLETED DATE/TIME: 02/13/2019 5:22 pm REASON FOR STUDY: SOB COMPARISON: None. EXAM PARAMETERS: NUMBER OF VIEWS: two views TECHNIQUE: Digital Frontal and Lateral radiographic views of the chest acquired. RADIATION DOSE: NA LIMITATIONS: none FINDINGS: LUNGS AND PLEURA: No acute infiltrates or effusions. MEDIASTINUM AND HILAR STRUCTURES: No masses or contour abnormalities. HEART AND VASCULAR STRUCTURES: Borderline cardiac size. Pulmonary vasculature is normal. BONES: No acute findings. HARDWARE: None in the chest. OTHER: Minimal dorsal spondylosis IMPRESSION: NO ACUTE DISEASE. TECHNICAL DOCUMENTATION: JOB ID: [id number] [employer]- All Rights Reserved Reading location - IP/workstation name: [email or web address]
[2019-02-13] MEDS ORDERED: GUAIFENESIN/CODEINE PHOS 100-10 MG/ 5 ML UDC PO ONE (18:23)
[2019-02-13] MEDS ORDERED: DOXYCYCLINE HYCLATE 100 MG TABLET PO ONE (18:23)
[2019-02-13] MEDS ORDERED: DIPHENHYDRAMINE HCL 50 MG/ML VIAL IV ONE (18:23)
[2019-02-13] MEDS ORDERED: METOCLOPRAMIDE HCL INJ/PF 10 MG/2 ML SDV IV ONE (18:23)
[2019-02-13] MEDS ORDERED: ONDANSETRON ODT 4 MG TAB (6 TAB/ER DISP) PO PRN (19:04)
[2019-02-13] MEDS ORDERED: CLONIDINE HCL 0.1 MG TABLET PO ONE (19:09)
--- NOTE | 2019-02-13 19:09 | ER Document Report ---
ED General - General Chief Complaint: Nausea/Vomiting/Diarrhea Stated Complaint: COUGH,BACK PAIN Time Seen by Provider: 02/13/19 15:29 Primary Care Provider: TRINI PINA MD [Primary Care Provider] - Follow up as needed Mode of Arrival: Ambulatory Information source: Patient, [facility] Records Notes: 44-year-old female with hypertension, asthma, presents with 3 weeks of a nonproductive cough. Patient was seen 1 week ago and placed on steroids. She states that the cough has not gotten any better. She also reports 1 day of vomiting and diarrhea. Patient denies any black or bloody stools, hematemesis, fever, chills, chest pain, shortness of breath. TRAVEL OUTSIDE OF THE [place] IN LAST 30 DAYS: No - HPI Onset: Other Onset/Duration: Gradual, Persistent Quality of pain: Achy, Cramping Severity: Mild Associated symptoms: Nonproductive cough, Diarrhea, Nausea, Vomiting Exacerbated by: Denies Relieved by: Denies Similar symptoms previously: Yes Recently seen / treated by doctor: Yes - Related Data Allergies/Adverse Reactions: No Known Allergies Allergy (Verified 02/13/19 14:20) Past Medical History - General Information source: Patient - Social History Smoking Status: Never Smoker Frequency of alcohol use: None Drug Abuse: None Lives with: Family Family History: Reviewed & Not Pertinent Patient has suicidal ideation: No Patient has homicidal ideation: No - Past Medical History Cardiac Medical History: Reports: Hx Hypertension Denies: Hx Coronary Artery Disease, Hx Heart Attack Pulmonary Medical History: Reports: Hx Asthma, Hx Bronchitis, Hx Pneumonia Denies: Hx COPD Neurological Medical History: Denies: Hx Cerebrovascular Accident, Hx Seizures Renal/ Medical History: Denies: Hx Peritoneal Dialysis GI Medical History: 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 Musculoskeletal Medical History: Denies Hx Arthritis, Reports Hx Fibromyalgia Infectious Medical History: 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 Past Surgical History: Reports: Hx Hysterectomy, Hx Tubal Ligation - Immunizations Immunizations up to date: Yes Hx Diphtheria, Pertussis, Tetanus Vaccination: Yes - 2008 Review of Systems - Review of Systems Notes: REVIEW OF SYSTEMS: CONSTITUTIONAL : Denies fever, chills, or sweats. Denies recent illness. Denies weight loss, recent hospitalizations. EENT: Denies visual changes, eye pain. Denies sore throat, oral lesions, difficulty swallowing. CARDIOVASCULAR: Denies chest pain. Denies palpitations. Denies lower extremity edema. RESPIRATORY: + cough. Denies wheezing. GASTROINTESTINAL: Denies abdominal pain or distention. . Denies blood in vomitus, stools, or per rectum. Denies black, tarry stools. Denies constipation. GENITOURINARY: Denies difficulty urinating, painful urination, frequency, blood in urine, or vaginal discharge. MUSCULOSKELETAL: Denies back or neck pain or stiffness. Denies joint pain or swelling. SKIN: Denies rash, lesions or sores. HEMATOLOGIC : Denies easy bruising or bleeding. LYMPHATIC: Denies swollen glands. NEUROLOGICAL: Denies confusion or altered mental status. Denies loss of c onsciousness. Denies dizziness or lightheadedness. Denies headache. Denies weakness or paralysis. Denies problems difficulty with ambulation, slurred speech. Denies sensory loss, numbness, or tingling. Denies seizures. PSYCHIATRIC: Denies anxiety or stress. Denies depression, suicidal ideation, or homicidal ideation. Denies visual or auditory hallucinations. Physical Exam - Vital signs Vitals: Temp Pulse Resp BP Pulse Ox 98.7 F 66 18 166/108 H 99 02/13/19 14:24 02/13/19 14:24 02/13/19 14:24 02/13/19 14:24 02/13/19 14:24 - Notes Notes: PHYSICAL EXAMINATION: GENERAL: Well-appearing, well-nourished and in no acute distress. HEAD: Atraumatic, normocephalic. EYES: Pupils equal round and reactive to light, extraocular movements intact, conjunctiva are normal. ENT: Nares patent, oropharynx clear without exudates. Moist mucous membranes. NECK: Normal range of motion, supple without lymphadenopathy LUNGS: Breath sounds clear to auscultation bilaterally and equal. No wheezes rales or rhonchi. HEART: Regular rate and rhythm without murmurs ABDOMEN: Soft, nontender, nondistended abdomen. No guarding, no rebound. No masses appreciated. Female : deferred Musculoskeletal: Normal range of motion, no pitting or edema. No cyanosis. NEUROLOGICAL: Cranial nerves grossly intact. Normal speech, normal gait. Normal sensory, motor exams PSYCH: Normal mood, normal affect. SKIN: Warm, Dry, normal turgor, no rashes or lesions noted. Course - Re-evaluation Re-evalutation: 02/13/19 21:14 Laboratory 02/13/19 02/13/19 16:30 16:30 WBC 9.6 RBC 5.48 H Hgb 13.9 Hct 41.5 MCV 76 L MCH 25.3 L MCHC 33.4 RDW 16.3 H Plt Count 235 Seg Neutrophils % 52.8 Lymphocytes % 35.5 Monocytes % 6.2 Eosinophils % 4.6 Basophils % 0.9 Absolute Neutrophils 5.1 Absolute Lymphocytes 3.4 Absolute Monocytes 0.6 Absolute Eosinophils 0.4 Absolute Basophils 0.1 Sodium 138.6 Potassium 4.1 Chloride 99 Carbon Dioxide 34 H Anion Gap 6 BUN 16 Creatinine 1.08 Est GFR ( Amer) > 60 Est GFR (Non-Af Amer) 55 L Glucose 93 Calcium 9.2 Total Bilirubin 0.6 Direct Bilirubin 0.2 Neonat Total Bilirubin 0.4 Neonat Direct Bilirubin 0.0 Neonat Indirect Bili 0.4 AST 19 ALT 21 Alkaline Phosphatase 48 Total Protein 7.4 Albumin 4.1 Chest X-Ray 02/13/19 15:30 IMPRESSION: NO ACUTE DISEASE. Temp Pulse Resp BP Pulse Ox 98.7 F 66 18 162/108 H 99 02/13/19 14:24 02/13/19 14:24 02/13/19 19:37 02/13/19 19:37 02/13/19 19:37 Presentation is most consistent with a viral upper respiratory infection. Patient is overall well appearance, vitals within normal limits, well-hydrated. Patient denies any headache, neck pain, and has no evidence of meningismus on examination. Lungs are clear bilaterally. No evidence of respiratory distress. Based on clinical exam and history, I do not suspect an acute pneumonia, meningitis, strep pharyngitis, or an acute encephalitis. Will discharge patient with return precautions and followup recommendations. They are in agreement this plan have verbalized understanding return precautions. Patient was evaluated and treated as appropriate for the patient's presenting symptoms and complaint, with consideration of any critical or life threatening conditions that may be associated with their obtained history and exam as noted above. All results were discussed with patient . Patient provided the opportunity to ask questions, and express concerns. Patient was educated on treatments based on their presumed diagnosis as noted above. At this time we will discharge the patient with return precautions and follow-up recommendations. Verbal discharge instructions given a the bedside. Medication warnings reviewed. Patient is in agreement with this plan and has verbalized understanding of return precautions. After careful consideration I feel that that patient can be safely discharged from the emergency department, they were advised to followup with a primary care physician in 2-3 days. Dictation on this chart was performed using voice recognition software and may result in unintended grammatical, spelling, syntax or errors. - Vital Signs Vital signs: Temp Pulse Resp BP Pulse Ox 98.7 F 66 18 162/108 H 99 02/13/19 14:24 02/13/19 14:24 02/13/19 19:37 02/13/19 19:37 02/13/19 19:37 - Laboratory Result Diagrams: 02/13/19 16:30 02/13/19 16:30 Laboratory results interpreted by me: 02/13/19 02/13/19 16:30 16:30 RBC 5.48 H MCV 76 L MCH 25.3 L RDW 16.3 H Carbon Dioxide 34 H Est GFR (Non-Af Amer) 55 L - Diagnostic Test Radiology reviewed: Image reviewed, Reports reviewed Discharge - Discharge Clinical Impression: Acute URI, Nausea vomiting and diarrhea Asthma exacerbation Qualifiers: Asthma severity: mild Asthma persistence: intermittent Qualified Code(s): J45.21 - Mild intermittent asthma with (acute) exacerbation Condition: Good Disposition: HOME, SELF-CARE Instructions: Antinausea Medication ([facility]), Diarrhea, Nonspecific ([facility]), Vom iting ([facility]) Additional Instructions: Your symptoms are most likely due to a viral infection it should resolve over the next 7-14 days. You should take [id number] guanfacine per bottle instructions to help thin the mucus. For nasal congestion: I would recommend that you get qngb-[id number] oxymetazoline also known is afrin. Use only per bottle instructions and be sure to never use this for more than 3 days if you can develop severe rebound congestion. You may also use tylenol or ibuprofen as needed for aches and throat discomfort. Please be sure to drink plenty of fluids and get rest. Return to the emergency department he began having difficulty breathing, chest pain, persistent vomiting, or any other symptoms that are concerning to you. Prescriptions: Guaifenesin/Codeine Phos [Robitussin-AC Syrup 59 ml] 10 ml PO QHS #50 ml Doxycycline Hyclate 100 mg PO BID #14 capsule Forms: Elevated Blood Pressure Referrals: TRINI PINA MD [Primary Care Provider] - Follow up as needed
[2019-02-13 20:00] VITALS: BP 162/108
== END 2019-02-13 20:12 | disposition home or self-care (01) ==
LOC: ER 14:16
DX: J06.9 Acute upper respiratory infection, unspecified (principal); J45.21 Mild intermittent asthma with (acute) exacerbation; R11.2 Nausea with vomiting, unspecified; R19.7 Diarrhea, unspecified; R05 Cough; M54.9 Dorsalgia, unspecified; I10 Essential (primary) hypertension
CPT/HCPCS: 99283; 36415; 85025; 80053; 71046; J1200; J2930; J2765; J2405; J7030; J7620

== ENCOUNTER → 2019-11-10 | Outpatient (CLI) | payer BC ==
--- NOTE | 2019-11-10 15:11 | RADIOLOGY REPORT (SQ) ---
EXAM DESCRIPTION: CHEST PA/LATERAL COMPLETED DATE/TIME: 11/10/2019 2:55 pm REASON FOR STUDY: COUGH COMPARISON: 18 EXAM PARAMETERS: NUMBER OF VIEWS: two views TECHNIQUE: Digital Frontal and Lateral radiographic views of the chest acquired. RADIATION DOSE: NA LIMITATIONS: none FINDINGS: LUNGS AND PLEURA: No opacities, masses or pneumothorax. No pleural effusion. MEDIASTINUM AND HILAR STRUCTURES: No masses or contour abnormalities. HEART AND VASCULAR STRUCTURES: Heart normal size. No evidence for failure. BONES: No acute findings. HARDWARE: None in the chest. OTHER: No other significant finding. IMPRESSION: NO SIGNIFICANT RADIOGRAPHIC FINDING IN THE CHEST. TECHNICAL DOCUMENTATION: JOB ID: [id number] 2010 [employer]- All Rights Reserved Reading location - IP/workstation name: [email or web address]
== END ==
LOC: OD 14:36
PROVIDERS: ATTEND Family Medicine
DX: R05 Cough (principal)
CPT/HCPCS: 71046

== ENCOUNTER → 2019-12-15 | Outpatient (CLI) | payer BC ==
[2019-12-15 11:01] LABS: ABSOLUTE EOSINOPHILS # (AUTO) 0.3 10^3/uL (0.0-0.6); ABSOLUTE LYMPHOCYTES (AUTO) 2.2 10^3/uL (0.5-4.7); ABSOLUTE MONOCYTES (AUTO) 0.3 10^3/uL (0.1-1.4); ABSOLUTE NEUT (AUTO) 2.9 10^3/uL (1.7-8.2); BASOPHILS % (AUTO) 0.6 % (0-2); EOSINOPHILS % (AUTO) 5.3 % (0-6); HEMATOCRIT 38.3 % (36.0-47.0); HEMOGLOBIN 13.3 g/dL (12.0-15.5); LYMPHOCYTES % (AUTO) 38.8 % (13-45); MEAN CORPUSCULAR HEMOGLOBIN 26.5 pg (27.0-33.4); MEAN CORPUSCULAR HGB CONC 34.7 g/dL (32.0-36.0); MEAN CORPUSCULAR VOLUME 76 fl (80-97); MONOCYTES % (AUTO) 5.4 % (3-13); PLATELET COUNT 178 10^3/uL (150-450); RED BLOOD COUNT 5.01 10^6/uL (3.72-5.28); RED CELL DISTRIBUTION WIDTH 14.5 % (11.5-14.0); SEGMENTED NEUTROPHILS % (AUTO) 49.9 % (42-78); TOTAL CELLS COUNTED % (AUTO) 100 %; WHITE BLOOD COUNT 5.8 10^3/uL (4.0-10.5)
[2019-12-15 11:21] LABS: ALBUMIN 4.1 g/dL (3.5-5.0); ALKALINE PHOSPHATASE 54 U/L (38-126); ANION GAP 5 (5-19); ASPARTATE AMINO TRANSFERASE 19 U/L (14-36); BILIRUBIN,TOTAL 0.6 mg/dL (0.2-1.3); BLOOD UREA NITROGEN 18 mg/dL (7-20); CALCIUM 9.2 mg/dL (8.4-10.2); CARBON DIOXIDE 32 mmol/L (22-30); CHLORIDE 102 mmol/L (98-107); CHOLESTEROL 163.39 mg/dL (0-200); GLUCOSE 95 mg/dL (75-110); POTASSIUM 4.2 mmol/L (3.6-5.0); TOTAL PROTEIN 7.1 g/dL (6.3-8.2); TRIGLYCERIDES 60 mg/dL (<150)
[2019-12-15 11:31] LABS: DIRECT LDL 110 mg/dL (<100)
[2019-12-15 11:36] LABS: FREE T3 3.35 pg/mL (2.77-5.27); FREE T4 (FREE THYROXINE) 0.98 ng/dL (0.78-2.19)
[2019-12-15 11:49] LABS: THYROID STIMULATING HORMONE 1.57 uIU/mL (0.47-4.68)
== END ==
LOC: OD 10:10
PROVIDERS: ATTEND Family Medicine
DX: I10 Essential (primary) hypertension (principal); N28.9 Disorder of kidney and ureter, unspecified; Z13.1 Encounter for screening for diabetes mellitus; Z13.220 Encounter for screening for lipoid disorders; R94.6 Abnormal results of thyroid function studies
CPT/HCPCS: 36415; 80053; 80061; 83036; 84439; 84443; 84481; 85025

== ENCOUNTER 2020-03-13 11:43 | Emergency (ER) | payer BC ==
[2020-03-13] MEDS ORDERED: ASPIRIN 81 MG TABLET, CHEWABLE PO ONE (12:00)
--- NOTE | 2020-03-13 12:02 | ER Document Report ---
ED Medical Screen (RME) - General Chief Complaint: Chest Pain Stated Complaint: CHEST PAIN Time Seen by Provider: 03/13/20 11:45 Primary Care Provider: JEFFY HOFFMANN DO [Primary Care Provider] - Follow up as needed TRAVEL OUTSIDE OF THE [place] IN LAST 30 DAYS: No - HPI Notes: 03/13/20 12:01 45-year-old female with a history of hypertension, asthma, fibromyalgia presents emergency room with left-sided chest pain that started last night at 5 PM. States pain is episodic, fluttering and only lasts a few seconds. Denies any radiation of pain. States she has had 5 episodes this morning. Denies any previous cardiac history. Non-smoker. Denies parents having any cardiac issues such as AR or CVA, hypertension. Denies any nausea vomiting or diarrhea, reports she does have loose stool since restarting her apple cider vinegar Gummies yesterday. Denies any fevers or chills. Nothing makes better, nothing makes worse. 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 Denies any shortness of breath, headache, neck pain. I have greeted and performed a rapid initial assessment of this patient. A comprehensive ED assessment and evaluation of the patient, analysis of test results and completion of the medical decision making process will be conducted by additional ED providers. PHYSICAL EXAMINATION: GENERAL: Well-appearing, well-nourished and in no acute distress. HEAD: Atraumatic, normocephalic. EYES: Pupils equal round extraocular movements intact, conjunctiva are normal. NECK: Normal range of motion CV: s1, s2 regular LUNGS: No respiratory distress - Related Data Allergies/Adverse Reactions: No Known Allergies Allergy (Verified 03/13/20 11:55) Past Medical History - Past Medical History Cardiac Medical History: Reports: Hx Hypertension Denies: Hx Coronary Artery Disease, Hx Heart Attack Pulmonary Medical History: Reports: Hx Asthma, Hx Bronchitis, Hx Pneumonia Denies: Hx COPD Neurological Medical History: Denies: Hx Cerebrovascular Accident, Hx Seizures Renal/ Medical History: Denies: Hx Peritoneal Dialysis GI Medical History: 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 Musculoskeltal Medical History: Denies Hx Arthritis, Reports Hx Fibromyalgia Infectious Medical History: 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 Past Surgical History: Reports: Hx Hysterectomy, Hx Tubal Ligation - Immunizations Immunizations up to date: Yes Hx Diphtheria, Pertussis, Tetanus Vaccination: Yes - 2008 Physical Exam - Vital signs Vitals: Temp Pulse Resp BP Pulse Ox 98.6 F 73 18 174/103 H 100 03/13/20 11:55 03/13/20 11:55 03/13/20 11:55 03/13/20 11:55 03/13/20 11:55 Course - Vital Signs Vital signs: Temp Pulse Resp BP Pulse Ox 98.6 F 73 18 174/103 H 100 03/13/20 11:55 03/13/20 11:55 03/13/20 11:55 03/13/20 11:55 03/13/20 11:55 Doctor's Discharge - Discharge Referrals: JEFFY HOFFMANN DO [Primary Care Provider] - Follow up as needed
--- NOTE | 2020-03-13 12:28 | RADIOLOGY REPORT (SQ) ---
EXAM DESCRIPTION: CHEST SINGLE VIEW IMAGES COMPLETED DATE/TIME: 03/13/2020 12:18 pm REASON FOR STUDY: chest pain COMPARISON: None. EXAM PARAMETERS: NUMBER OF VIEWS: One view. TECHNIQUE: Single frontal radiographic view of the chest acquired. RADIATION DOSE: NA LIMITATIONS: None. FINDINGS: LUNGS AND PLEURA: Mild atelectasis/scarring in the right lung base. No infiltrates, yessica s or pneumothorax. No pleural effusion. MEDIASTINUM AND HILAR STRUCTURES: No masses. Contour normal. HEART AND VASCULAR STRUCTURES: Heart normal in size. Normal vasculature. BONES: No acute findings. HARDWARE: None in the chest. OTHER: No other significant finding. IMPRESSION: MILD ATELECTASIS/ SCARRING IN THE RIGHT LUNG BASE. NO ACUTE RADIOGRAPHIC FINDING IN THE CHEST. TECHNICAL DOCUMENTATION: JOB ID: [id number] 2010 [employer]- All Rights Reserved Reading location - IP/workstation name: [email or web address]
[2020-03-13 12:30] LABS: ABSOLUTE EOSINOPHILS # (AUTO) 0.4 10^3/uL (0.0-0.6); ABSOLUTE LYMPHOCYTES (AUTO) 2.4 10^3/uL (0.5-4.7); ABSOLUTE MONOCYTES (AUTO) 0.3 10^3/uL (0.1-1.4); ABSOLUTE NEUT (AUTO) 2.8 10^3/uL (1.7-8.2); BASOPHILS % (AUTO) 0.5 % (0-2); EOSINOPHILS % (AUTO) 6.5 % (0-6); HEMATOCRIT 37.3 % (36.0-47.0); HEMOGLOBIN 12.8 g/dL (12.0-15.5); LYMPHOCYTES % (AUTO) 39.9 % (13-45); MEAN CORPUSCULAR HEMOGLOBIN 25.8 pg (27.0-33.4); MEAN CORPUSCULAR HGB CONC 34.4 g/dL (32.0-36.0); MEAN CORPUSCULAR VOLUME 75 fl (80-97); MONOCYTES % (AUTO) 5.8 % (3-13); PLATELET COUNT 210 10^3/uL (150-450); RED BLOOD COUNT 4.97 10^6/uL (3.72-5.28); RED CELL DISTRIBUTION WIDTH 14.4 % (11.5-14.0); SEGMENTED NEUTROPHILS % (AUTO) 47.3 % (42-78); TOTAL CELLS COUNTED % (AUTO) 100 %; WHITE BLOOD COUNT 5.9 10^3/uL (4.0-10.5)
[2020-03-13 12:45] LABS: ALKALINE PHOSPHATASE 51 U/L (38-126); ANION GAP 5 (5-19); ASPARTATE AMINO TRANSFERASE 16 U/L (14-36); BILIRUBIN,TOTAL 0.4 mg/dL (0.2-1.3); BLOOD UREA NITROGEN 17 mg/dL (7-20); CALCIUM 9.3 mg/dL (8.4-10.2); CARBON DIOXIDE 29 mmol/L (22-30); CHLORIDE 102 mmol/L (98-107); CREATINE KINASE 77 U/L (30-135); GLUCOSE 96 mg/dL (75-110); POTASSIUM 4.1 mmol/L (3.6-5.0); TOTAL PROTEIN 6.9 g/dL (6.3-8.2)
[2020-03-13 12:57] LABS: CREATINE KINASE MB 1.07 ng/mL (<4.55)
[2020-03-13 12:58] LABS: TROPONIN I < 0.012 ng/mL
[2020-03-13] MEDS ORDERED: CLONIDINE HCL 0.1 MG TABLET PO ONE (16:14)
--- NOTE | 2020-03-13 17:29 | ER Document Report ---
ED Cardiac - General Chief Complaint: Chest Pain > 30 Stated Complaint: CHEST PAIN Time Seen by Provider: 03/13/20 11:45 Primary Care Provider: CAROLEE BAUTISTA MD [ACTIVE STAFF] - Follow up as needed AFSHIN IRELAND MD [ACTIVE STAFF] - Follow up as needed ROLF RAYA MD [ACTIVE STAFF] - Follow up as needed JEFFY HOFFMANN DO [Primary Care Provider] - Follow up tomorrow HERLINDA BEAL MD [EMERITUS] - Follow up as needed Notes: Patient is a 45-year-old female with a history of hypertension who presents the emergency department with a chief complaint of chest pains. Patient states that her symptoms started yesterday evening. Patient states that she feels flutters in her chest. She states that they come and go. Patient states that she had her blood pressure medication changed. She does not know what medication she was placed on. TRAVEL OUTSIDE OF THE [place] IN LAST 30 DAYS: No - Related Data Allergies/Adverse Reactions: No Known Allergies Allergy (Verified 03/13/20 11:55) Past Medical History - Social History Smoking Status: Never Smoker Chew tobacco use (# tins/day): No Frequency of alcohol use: Occasional Drug Abuse: None Family History: Reviewed & Not Pertinent Patient has homicidal ideation: No - Past Medical History Cardiac Medical History: Reports: Hx Hypertension Denies: Hx Coronary Artery Disease, Hx Heart Attack Pulmonary Medical History: Reports: Hx Asthma, Hx Bronchitis, Hx Pneumonia Denies: Hx COPD Neurological Medical History: Denies: Hx Cerebrovascular Accident, Hx Seizures Renal/ Medical History: Denies: Hx Peritoneal Dialysis GI Medical History: 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 Musculoskeletal Medical History: Denies Hx Arthritis, Reports Hx Fibromyalgia Infectious Medical History: 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 Past Surgical History: Reports: Hx Hysterectomy, Hx Tubal Ligation - Immunizations Immunizations up to date: Yes Hx Diphtheria, Pertussis, Tetanus Vaccination: Yes - 2008 Review of Systems - Review of Systems Notes: REVIEW OF SYSTEMS: CONSTITUTIONAL : Denies recent illness. Denies recent unintentional weight loss. Denies fever, chills, or sweats. EENT: Denies eye, ear, throat, or mouth pain, discharge, or symptoms. Denies nasal or sinus congestion. CARDIOVASCULAR: See HPI. RESPIRATORY: Denies shortness of breath, cough, congestion, difficulty breathing, or wheezing. GASTROINTESTINAL: Denies nausea, vomiting, and diarrhea. Denies abdominal pain. Denies constipation. GENITOURINARY: Denies difficulty urinating, burning, blood in urine, urgency or frequency. MUSCULOSKELETAL: Denies neck and back pain. Denies joint pain or swelling. SKIN: Denies rash, itchiness, or lesions HEMATOLOGIC : Denies easy bruising or bleeding. LYMPHATIC: Denies swollen, painful, enlarged glands. NEUROLOGICAL: Denies no numbness or tingling denies weakness. Denies headache. Denies altered mental status. Denies alteration in speech. PSYCHIATRIC: Denies stress, anxiety, alteration in sleep patterns, or depression. All other systems reviewed and negative. Physical Exam - Vital signs Vitals: Temp Pulse Resp BP Pulse Ox 98.6 F 73 18 174/103 H 100 03/13/20 11:55 03/13/20 11:55 03/13/20 11:55 03/13/20 11:55 03/13/20 11:55 - Notes Notes: PHYSICAL EXAMINATION: GENERAL: Appears well, obese, no acute distress. HEAD: Normocephalic, atraumatic. EYES: PERRL, conjunctiva normal, all extraocular movements intact, sclera nonicteric ENT: Moist mucous membranes. NECK: Supple, no noticeable swelling, redness, rash. Normal range of motion. LUNGS: Equal breath sounds bilaterally and clear to auscultation. No wheezes rales or rhonchi. CARDIOVASCULAR: S1-S2, regular rate, regular rhythm. Radial pulses 2+, normal. ABDOMEN: Normoactive bowel sounds. Soft, nontender, no guarding, no rebound tenderness, and no masses palpated. EXTREMITIES: Normal strength and range of motion, no pitting or edema. No cyanosis. NEUROLOGICAL: Moves all extremities upon command. Strength 5/5 in all ext remities. PSYCH: Normal mood, normal affect. SKIN: Warm, dry. No rash, lesions, ulcerations noted. Normal skin turgor. Course - Re-evaluation Re-evalutation: 03/13/20 16:10 Hematology is unremarkable. No anemia or leukocytosis noted. Chemistries are also unremarkable. Creatinine is normal. Patient's troponin is negative x2. Will place patient's blood pressure is elevated. 182/130. We will give the patient clonidine and reassess. Patient denies any pain at this time. 03/13/20 17:30 I reassessed the patient and her blood pressure is now 171/108, which is better than it was earlier at 1600 this afternoon when it was 182/130. I advised the patient to take her hydralazine as directed, as this is important in managing her blood pressure. We will give her Zofran to take prior to taking the hydralazine. She is in agreement with this plan. She plans to follow-up with her primary care provider tomorrow. She denies any headache. No evidence of endorgan damage. Follow-up precautions were given. Verbal discharge instructions were given to the patient. They verbalized understanding. They are stable for discharge. - Vital Signs Vital signs: Temp Pulse Resp BP Pulse Ox 98.6 F 73 21 H 171/108 H 100 03/13/20 11:55 03/13/20 15:16 03/13/20 17:20 03/13/20 17:18 03/13/20 17:20 - Laboratory Result Diagrams: 03/13/20 12:06 03/13/20 12:06 Laboratory results interpreted by me: 03/13/20 03/13/20 12:06 12:06 MCV 75 L MCH 25.8 L RDW 14.4 H Eos % (Auto) 6.5 H Sodium 135.6 L Est GFR (MDRD) Non-Af 52 L - EKG Interpretation by Me Additional EKG results interpreted by me: 03/13/20 Sinus rhythm. Rate 71. AL 144; QRS 90; QT 396; QTc 431. No ST elevations or depressions noted. Discharge - Discharge Clinical Impression: Essential hypertension Chest pain Qualifiers: Chest pain type: unspecified Qualified Code(s): R07.9 - Chest pain, unspecified Condition: Stable Disposition: HOME, SELF-CARE Additional Instructions: You were seen today in the emergency department for chest pain. Your chest pain work-up was reassuring. Your blood pressure is not well controlled. I advise you take your hydralazine as prescribed and take 1 in the morning and 1 in the evening. You can take the Zofran prescribed to you today prior to taking your medication. I also advised that you take your clonidine 3 times a day. Follow- up with your primary care provider tomorrow in regards to this visit. Follow-up with 1 of the inhalation therapy aides teacher below. Prescriptions: Ondansetron [Zofran Odt 4 mg Tablet] 1 - 2 tab PO Q4H PRN #30 tab.rapdis PRN Reason: For Nausea/Vomiting Referrals: JEFFY HOFFMANN DO [Primary Care Provider] - Follow up tomorrow HERLINDA BEAL MD [EMERITUS] - Follow up as needed AFSHIN IRELAND MD [ACTIVE STAFF] - Follow up as needed ROLF RAYA MD [ACTIVE STAFF] - Follow up as needed CAROLEE BAUTISTA MD [ACTIVE STAFF] - Follow up as needed
[2020-03-13] MEDS ORDERED: ONDANSETRON 4 MG TAB.RAPDIS PO ONE (17:33)
[2020-03-13 17:36] VITALS: BP 171/108
--- NOTE | 2020-03-14 09:32 | EKG REPORT ---
SEVERITY:- ABNORMAL ECG - SINUS RHYTHM PROBABLE LEFT ATRIAL ABNORMALITY LEFT VENTRICULAR HYPERTROPHY : Confirmed by: Ingrid Granda 14-Mar-2020 09:32:01
== END 2020-03-13 17:44 | disposition home or self-care (01) ==
LOC: ER 11:43
DX: R07.9 Chest pain, unspecified (principal); I10 Essential (primary) hypertension; Z90.710 Acquired absence of both cervix and uterus
CPT/HCPCS: 93005; 99285; 36415; 82553; 82550; 85025; 80053; 84484; 71045; 93010; S0119

== ENCOUNTER → 2020-05-25 | Outpatient (CLI) | payer BC ==
--- NOTE | 2020-05-25 13:52 | RADIOLOGY REPORT (SQ) ---
EXAM DESCRIPTION: CHEST PA/LATERAL IMAGES COMPLETED DATE/TIME: 05/25/2020 1:33 pm REASON FOR STUDY: MORBID (SEVERE) OBESITY DUE TO EXCESS CALORIES,GERD COMPARISON: 03/13/2020 EXAM PARAMETERS: NUMBER OF VIEWS: two views TECHNIQUE: Digital Frontal and Lateral radiographic views of the chest acquired. RADIATION DOSE: NA LIMITATIONS: none FINDINGS: LUNGS AND PLEURA: Stable mild right basilar opacity from prior, likely scarring. No new a irspace disease, pleural effusion or pneumothorax. MEDIASTINUM AND HILAR STRUCTURES: No masses or contour abnormalities. HEART AND VASCULAR STRUCTURES: Heart normal size. No evidence for failure. BONES: No acute findings. HARDWARE: None in the chest. OTHER: No other significant finding. IMPRESSION: Stable mild right basilar opacities from prior, likely scarring. TECHNICAL DOCUMENTATION: JOB ID: [id number] 2010 [employer]- All Rights Reserved Reading location - IP/workstation name: [email or web address]
[2020-05-25 13:59] LABS: ABSOLUTE EOSINOPHILS # (AUTO) 0.3 10^3/uL (0.0-0.6); ABSOLUTE LYMPHOCYTES (AUTO) 2.3 10^3/uL (0.5-4.7); ABSOLUTE MONOCYTES (AUTO) 0.2 10^3/uL (0.1-1.4); ABSOLUTE NEUT (AUTO) 2.6 10^3/uL (1.7-8.2); BASOPHILS % (AUTO) 0.8 % (0-2); EOSINOPHILS % (AUTO) 5.4 % (0-6); HEMATOCRIT 35.5 % (36.0-47.0); HEMOGLOBIN 12.4 g/dL (12.0-15.5); LYMPHOCYTES % (AUTO) 42.3 % (13-45); MEAN CORPUSCULAR HEMOGLOBIN 26.1 pg (27.0-33.4); MEAN CORPUSCULAR HGB CONC 34.8 g/dL (32.0-36.0); MEAN CORPUSCULAR VOLUME 75 fl (80-97); MONOCYTES % (AUTO) 3.4 % (3-13); PLATELET COUNT 194 10^3/uL (150-450); RED BLOOD COUNT 4.74 10^6/uL (3.72-5.28); RED CELL DISTRIBUTION WIDTH 15.5 % (11.5-14.0); SEGMENTED NEUTROPHILS % (AUTO) 48.1 % (42-78); TOTAL CELLS COUNTED % (AUTO) 100 %; WHITE BLOOD COUNT 5.5 10^3/uL (4.0-10.5)
[2020-05-25 17:18] LABS: ANION GAP 9 (5-19); BLOOD UREA NITROGEN 22 mg/dL (7-20); CALCIUM 9.5 mg/dL (8.4-10.2); CARBON DIOXIDE 33 mmol/L (22-30); CHLORIDE 96 mmol/L (98-107); GLUCOSE 80 mg/dL (75-110); POTASSIUM 4.1 mmol/L (3.6-5.0)
--- NOTE | 2020-05-25 18:01 | EKG REPORT ---
SEVERITY:- ABNORMAL ECG - SINUS RHYTHM LEFT ATRIAL ABNORMALITY LEFT VENTRICULAR HYPERTROPHY : Confirmed by: Ronny Maddox MD 25-May-2020 17:59:54
== END ==
LOC: OD 12:48
PROVIDERS: ATTEND Surgery
DX: K21.9 Gastro-esophageal reflux disease without esophagitis (principal); E66.01 Morbid (severe) obesity due to excess calories
CPT/HCPCS: 36415; 71046; 80048; 84443; 85025; 93005; 93010

== ENCOUNTER → 2020-06-12 | Outpatient (CLI) | payer BC ==
--- NOTE | 2020-06-12 15:02 | WOMENS IMAGING REPORT ---
EXAM DESCRIPTION: U/S ABDOMEN LIMITED IMAGES COMPLETED DATE/TIME: 06/12/2020 10:55 am REASON FOR STUDY: K21.9 GASTRO-ESOPHAGEAL REFLUX DISEASE WITHOUT ESOPHAGITIS E66.01 MORBID (SEVERE) OBESITY DUE TO EXCESS CALORIES K21.9 GASTRO-ESOPHAGEAL REFLUX DISEASE WITHOUT ESOPHAGITIS COMPARISON: 04/27/2015. TECHNIQUE: Dynamic and static grayscale images acquired of the abdomen and recorded on PACS. Additio nal selected color Doppler and spectral images recorded. Note: Exam does not meet criteria for a complete doppler/duplex scan LIMITATIONS: Study limited due to acoustical interference from fat or from air in the bowel. FINDINGS: PANCREAS: Poorly seen secondary to acoustical interference from fat or from air in the bow el. No visualized masses. Duct normal caliber as seen. LIVER: Echotexture is coarse with increased echogenicity consistent with fatty infiltration. LIVER VASCULATURE: Normal directional flow of the main portal vein and hepatic veins. GALLBLADDER: Gallstone. Gallbladder wall thickening. No pericholecystic fluid. ULTRASOUND-DETECTED YEUNG'S SIGN: Negative. INTRAHEPATIC DUCTS AND COMMON DUCT: CBD and intrahepatic ducts normal caliber. No filling defects. INFERIOR VENA CAVA: Normal flow. AORTA: No aneurysm. RIGHT KIDNEY: Normal size. Normal echogenicity. No solid or suspicious masses. No hydronephrosis. No calcifications. PERITONEAL AND PLEURAL SPACES: No ascites or effusions. OTHER: No other significant finding. IMPRESSION: 1. GALLSTONE. GALLBLADDER WALL THICKENING. 2. FATTY INFILTRATION OF THE LIVER. NO OTHER SIGNIFICANT FINDING IN THE VISUALIZED ABDOMEN. TECHNICAL DOCUMENTATION: JOB ID: [id number] 2010 [employer]- All Rights Reserved Reading location - IP/workstation name: [email or web address]
== END ==
LOC: WI 10:30
PROVIDERS: ATTEND Surgery
DX: E66.01 Morbid (severe) obesity due to excess calories (principal); K21.9 Gastro-esophageal reflux disease without esophagitis
CPT/HCPCS: 76705